=== PATIENT | female | born 1955 | race Caucasian/White ===

== ENCOUNTER → 2018-01-24 | Outpatient (CLI) | payer OTHER ==
[~2018-01-24] MED LIST: GADOBUTROL 7.5 MMOL/7.5 ML (GADAVIST) VIAL IV ONE
[2018-01-24 09:19] LABS: BUN/CREATININE RATIO 32; CREATININE SERUM 0.88 MG/DL (0.60-1.30); GFR ESTIMATED > 60
--- NOTE | 2018-01-24 10:39 | Diagnostic Imaging Report ---
PROCEDURE: MRI lumbar spine with and without contrast. TECHNIQUE: Multiplanar, multisequence MRI of the lumbar spine was performed with and without contrast. INDICATION: Fall in October 2017, complaining of low back pain radiating to the left groin. COMPARISON: No prior MRI studies are available for comparison. FINDINGS: Curvature and alignment of the lumbar spine is normal. The vertebral body heights are maintained. The marrow signal intensity is unremarkable. No geographic marrow lesion or evidence of compression fracture is identified. Disc heights are maintained. There is some generalized desiccation present. The conus is unremarkable at the L1 level. T12-L1: No central canal or neuroforaminal stenosis is identified. L1-L2: No central canal or neuroforaminal stenosis is identified. L2-L3: Unremarkable. L3-L4: There are hypertrophic facet changes and mild ligamentous thickening but no central canal or neuroforaminal stenosis is identified. L4-L5: Hypertrophic facet changes are seen. There is ligamentous thickening. This does create some trefoil configuration to this thecal sac. No neuroforaminal stenosis is seen. AP dimensions of the canal are within normal limits. L5-S1: Left posterolateral broad-based disc bulging is noted which does produce [id number] narrowing of left lateral recess. Neural foramina are patent. No abnormal enhancement following contrast administration is identified. Paraspinous tissues are unremarkable. IMPRESSION: Lower lumbar spondylosis and facet arthropathy. There is L5-S1 left lateral recess narrowing due to broad-based disc bulging. There is mild trefoil configuration of the thecal sac at the L3-L4 and L4-L5 levels but no significant central canal stenosis is seen. No enhancing lesion or acute compression fractures identified. Dictated by: Dictated on workstation # [id number]
== END ==
LOC: RAD 08:36
PROVIDERS: ATTEND Nurse Practitioner Family
DX: M47.816 Spondylosis without myelopathy or radiculopathy, lumbar region (principal); M46.86 Other specified inflammatory spondylopathies, lumbar region; M51.27 Other intervertebral disc displacement, lumbosacral region; G62.9 Polyneuropathy, unspecified; W19.XXXA Unspecified fall, initial encounter
CPT/HCPCS: 36415; 72158; 82565; 84520

== ENCOUNTER 2019-06-15 08:39 | Observation (INO) | payer BC ==
[~2019-06-15] VITALS: Ht 154.9 cm; Wt 70.8 kg
--- NOTE | 2019-06-15 08:54 | ED Chest Pain ---
General Chief Complaint: Chest Pain Stated Complaint: CHEST PAIN Source: patient Exam Limitations: no limitations History of Present Illness Date Seen by Provider: Jun 15, 2019 Time Seen by Provider: 08:36 Initial Comments The patient presents to the ER by private conveyance with chief complaint about 1:00 the morning she was woken with some chest pain in her left chest that progressively got worse up to about 8 out of 10 at its peak. She took 400 mg of ibuprofen which helped with the pain was radiating to her bilateral shoulders. She says the pain was worse in her left and right. She says at this point the pain in her shoulders much better almost gone and her pain in her left chest is only a 5 out of 10. She is also having some pain up into her left jaw. Pain is reproducible to direct palpation as well as sometimes deep inspiration. She quit smoking 6 years ago when she was diagnosed with breast cancer and had her left breast removed. She had radiation and chemotherapy. She is considered in remission and does not remember who her oncologist was because it was in [place], [place]. She does not have diabetes but she has high blood pressure and hyperlipidemia. No previous history of coronary disease. No significant familial history. No recent periods of immobilization, shortness of breath cough, fever, chills, swelling in hands or feet. She was told she has COPD but she's not having any wheezing and never uses breathing treatments. She only has occasional acid reflux for which she uses antacids as needed. She is having nausea but no vomiting. She did have some sweats with the pain. Allergies and Home Medications Allergies Coded Allergies: No Known Drug Allergies (Unverified , 01/24/18) Patient Home Medication List Home Medication List Reviewed: Yes Review of Systems Review of Systems Constitutional: No chills; diaphoresis; No fever, No malaise EENTM: No Blurred Vision, No Double Vision Respiratory: Denies Cough, Denies Shortness of Air Cardiovascular: See HPI, Chest Pain; Denies Edema, Denies Irregular Heart Rate, Denies Lightheadedness, Denies Palpitations, Denies Syncope Gastrointestinal: Denies Abdominal Pain, Denies Constipated, Denies Diarrhea; Nausea; Denies Vomiting Genitourinary: Denies Burning, Denies Discharge Musculoskeletal: No back pain, No joint pain Skin: No pruritus, No rash Past Hueoelo-Khbbes-Dtnxoj Hx Patient Social History Alcohol Use: Denies Use Recreational Drug Use: No Smoking Status: Former Smoker Type Used: Cigarettes Former Smoker, Quit: Jun 28, 2013 Physical Exam Vital Signs Vital Signs - First Documented 06/15/19 08:41 Temp 97.7 Pulse 75 Resp 19 B/P (MAP) 179/111 (133) Pulse Ox 96 Capillary Refill : Height, Weight, BMI Height: '" Weight: lbs. oz. kg; BMI Method: General Appearance: WD/WN, Anxious HEENT: PERRL/EOMI, Pharynx Normal, Moist Mucous Membranes Neck: Full Range of Motion, Normal Inspection Respiratory: No Chest Non Tender; Lungs Clear, Normal Breath Sounds, No Accessory Muscle Use, No Respiratory Distress, Other (tenderness to direct palpation of the left chest wall) Cardiovascular: Regular Rate, Rhythm, No Edema, No Murmur, Normal Peripheral Pulses Gastrointestinal: Normal Bowel Sounds, No Organomegaly, Non Tender, Soft Extremity: Normal Capillary Refill, Normal Inspection Neurologic/Psychiatric: Alert, Oriented x3 Skin: Normal Color, Warm/Dry Progress/Results/Core Measures Results/Orders Lab Results Laboratory Tests Test 06/15/19 08:50 Range/Units White Blood Count 7.5 4.3-11.0 10^3/uL Red Blood Count 4.00 L 4.35-5.85 10^6/uL Hemoglobin 11.5 11.5-16.0 G/DL Hematocrit 35 35-52 % Mean Corpuscular Volume 88 80-99 FL Mean Corpuscular Hemoglobin 29 25-34 PG Mean Corpuscular Hemoglobin Concent 33 32-36 G/DL Red Cell Distribution Width 13.3 10.0-14.5 % Platelet Count 286 130-400 10^3/uL Mean Platelet Volume 9.0 7.4-10.4 FL Neutrophils (%) (Auto) 66 42-75 % Lymphocytes (%) (Auto) 24 12-44 % Monocytes (%) (Auto) 7 0-12 % Eosinophils (%) (Auto) 3 0-10 % Basophils (%) (Auto) 0 0-10 % Neutrophils # (Auto) 4.9 1.8-7.8 X 10^3 Lymphocytes # (Auto) 1.8 1.0-4.0 X 10^3 Monocytes # (Auto) 0.5 0.0-1.0 X 10^3 Eosinophils # (Auto) 0.2 0.0-0.3 10^3/uL Basophils # (Auto) 0.0 0.0-0.1 10^3/uL Prothrombin Time 13.1 12.2-14.7 SEC INR Comment 1.0 0.8-1.4 Activated Partial Thromboplast Time 27 24-35 SEC Sodium Level 142 135-145 MMOL/L Potassium Level 3.6 3.6-5.0 MMOL/L Chloride Level 99 98-107 MMOL/L Carbon Dioxide Level 25 21-32 MMOL/L Anion Gap 18 H 5-14 MMOL/L Blood Urea Nitrogen 29 H 7-18 MG/DL Creatinine 1.28 0.60-1.30 MG/DL Estimat Glomerular Filtration Rate 42 BUN/Creatinine Ratio 23 Glucose Level 120 H 70-105 MG/DL Calcium Level 10.0 8.5-10.1 MG/DL Corrected Calcium 8.5-10.1 MG/DL Magnesium Level 1.3 L 1.6-2.4 MG/DL Total Bilirubin 0.4 0.1-1.0 MG/DL Aspartate Amino Transf (AST/SGOT) 19 5-34 U/L Alanine Aminotransferase (ALT/SGPT) 12 0-55 U/L Alkaline Phosphatase 66 40-136 U/L Myoglobin 109.5 H 10.0-92.0 NG/ML Troponin I < 0.30 <0.30 NG/ML Total Protein 7.9 6.4-8.2 GM/DL Albumin 4.8 H 3.2-4.5 GM/DL My Orders Orders - EMMANUELLE ALICEA Cbc With Automated Diff (06/15/19 08:48) Magnesium (06/15/19 08:48) Chest 1 View Ap/Pa Only (06/15/19 08:48) Ekg Tracing (06/15/19 08:48) Comprehensive Metabolic Panel (06/15/19 08:48) Myoglobin Serum (06/15/19 08:48) Protime With Inr (06/15/19 08:48) Partial Thromboplastin Time (06/15/19 08:48) O2 (06/15/19 08:48) Monitor-Rhythm Ecg Trace Only (06/15/19 08:48) Lipid Panel (06/16/19 06:00) Aspirin Chewable Tablet (Baby Aspirin Ch (06/15/19 09:00) Nitroglycerin 0.4 Mg Btl 25's (Nitrostat (06/15/19 09:00) Ed Iv/Invasive Line Start (06/15/19 08:48) Troponin I (06/15/19 08:48) Ondansetron Injection (Zofran Injectio (06/15/19 09:00) Ed Iv/Invasive Line Start (06/15/19 09:35) Ns Iv 500 Ml (Sodium Chloride 0.9%) (06/15/19 09:35) Lidocaine 2% Viscous 15 Ml (Xylocaine Vi (06/15/19 09:45) Antacid Suspension (Mylanta Suspension (06/15/19 09:45) Famotidine Injection (Pepcid Injection) (06/15/19 09:35) Ct Angio Chest W (06/15/19 09:54) Heparin Acs Bolus 60 Units/Kg (06/15/19 09:54) Medications Given in ED Current Medications Medications Dose Ordered Sig/Cleo Route Start Time Stop Time Status Last Admin Dose Admin Al Hydrox/Mg Hydrox/Simethicone 30 ml ONCE ONCE PO 06/15/19 09:45 06/15/19 09:46 DC 06/15/19 09:45 30 ML Aspirin 324 mg ONCE ONCE PO 06/15/19 09:00 06/15/19 09:01 DC 06/15/19 08:57 324 MG Lidocaine HCl 15 ml ONCE ONCE PO 06/15/19 09:45 06/15/19 09:46 DC 06/15/19 09:45 15 ML Nitroglycerin 0.4 mg UD PRN SL 06/15/19 09:00 06/15/19 08:57 0.4 MG Ondansetron HCl 4 mg ONCE ONCE IVP 06/15/19 09:00 06/15/19 09:01 DC 06/15/19 09:00 4 MG Sodium Chloride 500 ml @ 0 mls/hr Q0M ONCE IV 06/15/19 09:35 06/15/19 09:36 DC 06/15/19 09:45 999 MLS/HR Vital Signs/I&O 06/15/19 08:41 Temp 97.7 Pulse 75 Resp 19 B/P (MAP) 179/111 (133) Pulse Ox 96 Progress Progress Note : Time: 09:31 Progress Note Gave her aspirin and nitroglycerin. Nitroglycerin did not seem to improve her chest pain and she says she still feels that since pressing down on her chest 4 out of 10. We'll trial a GI cocktail just to rule out gastric source. Moderate suspicion for her story but the reproducibility by direct palpation could either be costochondritis or related to her previous radiation therapy in the area of her pain. Heart score 3 points. Low risk. 0.91.7% 30-day MACE. Repeat troponin at 3 hours and if negative, discharge home with outpatient follow-up. Initial ECG Impression Date: Jun 15, 2019 Initial ECG Impression Time: 08:41 Initial ECG Rate: 69 Initial ECG Rhythm: Normal Sinus Initial ECG Intervals: Normal Initial ECG Impression: Normal Initial ECG Comparisson: No Previous ECG Available Comment Normal sinus rhythm without ST elevation or depression. Diagnostic Imaging Diagonstic Imaging: Xray Plain Films/CT/US/NM/MRI: chest (1v) Comments NAME: MARY [facility] REC#: [id number] PT STATUS: REG ER : 1955 PHYSICIAN: EMMANUELLE ALICEA MD ADMIT DATE: 06/15/19/ER FS Draft Date of Exam:06/15/19 CHEST 1 VIEW AP/PA ONLY INDICATION: Chest pain. COMPARISON: None available. TECHNIQUE: Single radiograph of the chest dated 06/15/2019. FINDINGS: The cardiac silhouette is within normal limits in size. No significant pulmonary vascular congestion. The lungs are clear. No pleural effusion. No pneumothorax. No acute osseous abnormality. IMPRESSION: No acute cardiopulmonary abnormality. Dictated on workstation # [id number] Dict: 06/15/19 0908 Trans: 06/15/19 0910 KB [id number] Interpreted by: MILAGRO HERNANDEZ MD Electronically signed by: Reviewed: Reviewed by Me Departure Communication (Admissions) Time/Spoke to Admitting Phy: 09:50 Dr. Stewart agrees to accept the patient for workup of chest pain. Time/Spoke to Consulting Phy: 09:50 Dr. Blanca agrees to consult on the patient and would like us to get a CT angiogram give her 5000 units of heparin and then send her. Impression Primary Impression: Chest pain Disposition: ADMITTED INPATIENT Condition: Stable Admissions Decision to Admit Reason: Admit from ER (General) Decision to Admit/Date: Jun 15, 2019 Time/Decision to Admit Time: 09:45 Departure-Patient Inst. Referrals: NO,LOCAL PHYSICIAN (PCP) Primary Care Physician MICHELLE PICKETT APRN (Family) Primary Care Physician EMMANUELLE ALICEA Jun 15, 2019 08:54
[2019-06-15] MEDS ORDERED: ONDANSETRON 4 MG/2 ML (SDV) Z0FRAN IVP ONE ×2 (09:00→10:00)
[2019-06-15] MEDS ORDERED: NITROGLYCERIN 0.4 MG SL TABS BTL 25'S SL PRN ×2 (09:00→12:30)
[2019-06-15] MEDS ORDERED: ASPIRIN 81 MG CHEW (CHILDREN'S ASA) PO ONE (09:00)
[2019-06-15 09:01] LABS: HEMATOCRIT 35 % (35-52); HEMOGLOBIN 11.5 G/DL (11.5-16.0); MEAN CORPUSCULAR HEMOGLOBIN 29 PG (25-34); MEAN CORPUSCULAR VOLUME 88 FL (80-99); WHITE BLOOD COUNT 7.5 10^3/uL (4.3-11.0)
[2019-06-15 09:02] LABS: BASOPHILS % (AUTO) 0 % (0-10); EOSINOPHILS # (AUTO) 0.2 10^3/uL (0.0-0.3); EOSINOPHILS % (AUTO) 3 % (0-10); LYMPHOCYTES # (AUTO) 1.8 X 10^3 (1.0-4.0); LYMPHOCYTES % (AUTO) 24 % (12-44); MEAN CORPUSCULAR HGB CONC 33 G/DL (32-36); MONOCYTES # (AUTO) 0.5 X 10^3 (0.0-1.0); MONOCYTES % (AUTO) 7 % (0-12); NEUTROPHILS # (AUTO) 4.9 X 10^3 (1.8-7.8); NEUTROPHILS % (AUTO) 66 % (42-75); PLATELET COUNT 286 10^3/uL (130-400); RED CELL DISTRIBUTION WIDTH 13.3 % (10.0-14.5)
--- NOTE | 2019-06-15 09:11 | Diagnostic Imaging Report ---
INDICATION: Chest pain. COMPARISON: None available. TECHNIQUE: Single radiograph of the chest dated 06/15/2019. FINDINGS: The cardiac silhouette is within normal limits in size. No significant pulmonary vascular congestion. The lungs are clear. No pleural effusion. No pneumothorax. No acute osseous abnormality. IMPRESSION: No acute cardiopulmonary abnormality. Dictated by: Dictated on workstation # [id number]
[2019-06-15 09:30] LABS: ALANINE AMINOTRANSFERASE 12 U/L (0-55); ALKALINE PHOSPHATASE 66 U/L (40-136); BILIRUBIN,TOTAL 0.4 MG/DL (0.1-1.0); BUN/CREATININE RATIO 23; CARBON DIOXIDE 25 MMOL/L (21-32); CHLORIDE 99 MMOL/L (98-107); CREATININE SERUM 1.28 MG/DL (0.60-1.30); GFR ESTIMATED 42; GLUCOSE 120 MG/DL (70-105); MAGNESIUM 1.3 MG/DL (1.6-2.4); POTASSIUM 3.6 MMOL/L (3.6-5.0); SODIUM 142 MMOL/L (135-145)
[2019-06-15 09:31] LABS: ALBUMIN 4.8 GM/DL (3.2-4.5); TOTAL PROTEIN 7.9 GM/DL (6.4-8.2)
[2019-06-15 09:33] LABS: PROTHROMBIN TIME PATIENT 13.1 SEC (12.2-14.7)
[2019-06-15] MEDS ORDERED: NS IV 500 ML 500 ML IV ONE (09:35)
[2019-06-15] MEDS ORDERED: FAMOTIDINE 20MG/2ML IV (PEPCID) IV STA (09:35)
[2019-06-15] MEDS ORDERED: LIDOCAINE 2% VISCOUS 15 ML UDC PO ONE (09:45)
[2019-06-15] MEDS ORDERED: ANTACID SUSP 30 ML UDC (MYLANTA) PO ONE (09:45)
[2019-06-15] MEDS ORDERED: HEParin 1000 UNIT/ML (10ML VIAL) FOR BOLUS IV ONE (09:54)
[2019-06-15] MEDS ORDERED: morphine INJ 10 MG/ML 1ML (SYR OR VIAL) IVP STA (09:58)
[2019-06-15] MEDS ORDERED: HOLD METFORMIN - RECEIVED CONTRAST 20 ML VIAL IV SCH (10:30)
[2019-06-15] MEDS ORDERED: IOHEXOL 350 MG/ML 100 ML (OMNIPAQUE 350) VIAL IV ONE (10:30)
[2019-06-15] MEDS ORDERED: NS 100 ML (IVPB) BAG IV ONE (10:30)
[2019-06-15] MEDS: CATHETER FLUSH 10 ML SYR IV PRN (10:35)
--- NOTE | 2019-06-15 10:51 | NUR ---
Called dispatch to page out transfer for via cliff nguyen, room cu3
--- NOTE | 2019-06-15 11:05 | Diagnostic Imaging Report ---
PROCEDURE: CT angiography of the chest with contrast. TECHNIQUE: Multiple contiguous axial images were obtained through the chest after uneventful bolus administration of intravenous contrast. 3D reconstructed CTA MIP acquisitions were also performed. Auto Exposure Controls were utilized during the CT exam to meet ALARA standards for radiation dose reduction. INDICATION: Chest pain. FINDINGS: Good opacification of the aorta and pulmonary arteries. There are no filling defects to indicate pulmonary emboli. No evidence of aortic aneurysm or dissection. The aortic root measures 3.1 cm. There is a soft tissue nodule which is not calcified in the left lung base measuring 7 mm. No mediastinal or hilar adenopathy of pathologic size. No bony lesion. IMPRESSION: 1. No evidence of pulmonary embolus or aortic dissection. 2. There is a soft tissue nodule measuring 7 mm laterally in the left lower lung abutting the pleura. Clinical followup recommended per Fleischner recommendations depending on patient's clinical history. Dictated by: Dictated on workstation # [id number]
[2019-06-15 12:05] VITALS: BP 185/115
[2019-06-15 12:30] VITALS: BP 177/100
[2019-06-15] MEDS ORDERED: ONDANSETRON 4 MG/2 ML (SDV) Z0FRAN IV PRN (12:30)
[2019-06-15] MEDS ORDERED: morphine INJ 4 MG/ML 1 ML (VIAL/SYRINGE) IV PRN (12:30)
[2019-06-15] MEDS ORDERED: NS W/KCL 20 MEQ/L 1,000 ML IV SCH (12:30)
[2019-06-15] MEDS ORDERED: REGADENOSON 0.4 MG/5 ML SYR (LEXISCAN) IV ONE (12:45)
--- NOTE | 2019-06-15 12:46 | Consultation-Cardiology ---
HPI-Cardiology Cardiology Consultation Date of Consultation 06/15/19 Date of Admission Time Seen by Provider: 12:40 Indication: chest pain HPI 63 years old lady with history of breast cancer, mastectomy, diabetes mellitus, hypertension hyperlipidemia. Start to have chest pain yesterday described it as dull in nature on the left side of her chest radiating to left shoulder and left arm persisted overnight, came into the emergency room reported some improvement today, laying down in bed comfortably, no shortness of breath. No syncope or near syncopal episodes. No claudications. Home Medications & Allergies Allergies: Coded Allergies: No Known Drug Allergies (Unverified , 01/24/18) Home Medication List Reviewed: Yes SAK-Ybplja-Fdrzfc Hx Patient Social History Marital Status: Employed/Student: employed Alcohol Use: Denies Use Recreational Drug Use: No Smoking Status: Former Smoker Type Used: Cigarettes 2nd Hand Smoke Exposure: No Recent Foreign Travel: No Recent Infectious Disease Expo: No Recent Hopitalizations: No Past Medical History discussed below Family Medical History Family Medical Hx noncontributory Review of Systems-General Review of Systems Constitutional: No chills; diaphoresis; No fever, No malaise EENTM: see HPI Respiratory: see HPI; No cough; dyspnea on exertion; No hemoptysis, No orthopnea, No phlegm, No short of breath, No stridor, No wheezing, No other Cardiovascular: see HPI, chest pain; No edema, No Hx of Intervention, No palpitations, No syncope, No vascular heart diseas, No other Gastrointestinal: no symptoms reported, see HPI Genitourinary: see HPI Musculoskeletal: see HPI; No back pain, No joint pain Skin: see HPI; No pruritus, No rash Psychiatric/Neurological: See HPI Reviewed Test Results Reviewed Test Results Lab Laboratory Tests Test 06/15/19 08:50 Range/Units White Blood Count 7.5 4.3-11.0 10^3/uL Red Blood Count 4.00 L 4.35-5.85 10^6/uL Hemoglobin 11.5 11.5-16.0 G/DL Hematocrit 35 35-52 % Mean Corpuscular Volume 88 80-99 FL Mean Corpuscular Hemoglobin 29 25-34 PG Mean Corpuscular Hemoglobin Concent 33 32-36 G/DL Red Cell Distribution Width 13.3 10.0-14.5 % Platelet Count 286 130-400 10^3/uL Mean Platelet Volume 9.0 7.4-10.4 FL Neutrophils (%) (Auto) 66 42-75 % Lymphocytes (%) (Auto) 24 12-44 % Monocytes (%) (Auto) 7 0-12 % Eosinophils (%) (Auto) 3 0-10 % Basophils (%) (Auto) 0 0-10 % Neutrophils # (Auto) 4.9 1.8-7.8 X 10^3 Lymphocytes # (Auto) 1.8 1.0-4.0 X 10^3 Monocytes # (Auto) 0.5 0.0-1.0 X 10^3 Eosinophils # (Auto) 0.2 0.0-0.3 10^3/uL Basophils # (Auto) 0.0 0.0-0.1 10^3/uL Prothrombin Time 13.1 12.2-14.7 SEC INR Comment 1.0 0.8-1.4 Activated Partial Thromboplast Time 27 24-35 SEC Sodium Level 142 135-145 MMOL/L Potassium Level 3.6 3.6-5.0 MMOL/L Chloride Level 99 98-107 MMOL/L Carbon Dioxide Level 25 21-32 MMOL/L Anion Gap 18 H 5-14 MMOL/L Blood Urea Nitrogen 29 H 7-18 MG/DL Creatinine 1.28 0.60-1.30 MG/DL Estimat Glomerular Filtration Rate 42 BUN/Creatinine Ratio 23 Glucose Level 120 H 70-105 MG/DL Calcium Level 10.0 8.5-10.1 MG/DL Corrected Calcium 8.5-10.1 MG/DL Magnesium Level 1.3 L 1.6-2.4 MG/DL Total Bilirubin 0.4 0.1-1.0 MG/DL Aspartate Amino Transf (AST/SGOT) 19 5-34 U/L Alanine Aminotransferase (ALT/SGPT) 12 0-55 U/L Alkaline Phosphatase 66 40-136 U/L Myoglobin 109.5 H 10.0-92.0 NG/ML Troponin I < 0.30 <0.30 NG/ML Total Protein 7.9 6.4-8.2 GM/DL Albumin 4.8 H 3.2-4.5 GM/DL Physical Exam Physical Exam Vital Signs Vital Signs - First Documented 06/15/19 06/15/19 08:41 12:05 Temp 97.7 Pulse 75 Resp 19 B/P (MAP) 179/111 (133) Pulse Ox 96 O2 Delivery Room Air Capillary Refill : Less Than 3 Seconds Height, Weight, BMI Height: 5'1.00" Weight: 153lbs. 6.0oz. [id number]; 29.0 BMI Method:Stated General Appearance: WD/WN, Anxious HEENT: PERRL/EOMI, Pharynx Normal, Moist Mucous Membranes Neck: Full Range of Motion, Normal Inspection Respiratory: No Chest Non Tender; Lungs Clear, Normal Breath Sounds, No Accessory Muscle Use, No Respiratory Distress, Other (tenderness to direct palpation of the left chest wall) Cardiovascular: Regular Rate, Rhythm, No Edema, No Murmur, Normal Peripheral Pulses Gastrointestinal: Normal Bowel Sounds, No Organomegaly, Non Tender, Soft Extremity: Normal Capillary Refill, Normal Inspection Neurologic/Psychiatric: Alert, Oriented x3 Skin: Normal Color, Warm/Dry A/P-Cardiology Admission Diagnosis Chest pain Hypertension Hyperlipidemia Diabetes mellitus Assessment/Plan Chest pain nonspecific etiology, resembling angina. cardiac enzymes negative. I will proceed with Lexiscan stress test in the morning, continue to monitor, started on aspirin Hypertension, monitor blood pressure Hyperlipidemia, restart medication monitor lipids Diabetes mellitus, has been on metformin, hold metformin for now and use IV fluid and monitor closely. History of breast cancer, history of left mastectomy, radiation to the chest. Obesity, BMI 29. Clinical Quality Measures DVT/VTE Risk/Contraindication: Risk Factor Score Per Nursin RFS Level Per Nursing on Admit: 3=High TYLER FLORIAN MD Jun 15, 2019 12:46
--- NOTE | 2019-06-15 14:07 | History & Physical-Hospitalist ---
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 She had never had anything of this sort before. She does take blood pressure medicine and a cholesterol medicine. The pain also radiated to down her left arm and was quite intense and then also radiated to her jaw and across the back of the neck and down the right arm. Initial workup there did not confirm an acute myocardial infarction however the intensity and duration of her pain necessitated the transfer here for cardiology services. Date Seen 06/15/19 Time Seen by a Provider: 14:01 Attending Physician Gill Stewart DO PCP No,Local Physician Referring Physician Date of Admission Jun 15, 2019 at 10:12 Home Medications & Allergies Home Medications Reviewed patient Home Medication Reconciliation performed by pharmacy medication reconciliations tissue technician and/or nursing. Patients Allergies have been reviewed. Allergies Allergies Coded Allergies No Known Drug Allergies (Unverified01/24/18) Past Qdczjmn-Xqjgvs-Hmcmqs Hx Past Med/Social Hx: Reviewed Nursing Past Med/Soc Hx Patient Social History Marrital Status: Employed/Student: employed Alcohol Use: Denies Use Recreational Drug Use: No Smoking Status: Former Smoker Former Smoker, Quit: Jun 28, 2013 Type Used: Cigarettes 2nd Hand Smoke Exposure: No Recent Foreign Travel: No Contact w/other who traveled: No Recent Hopitalizations: No Recent Infectious Disease Expo: No Seasonal Allergies Seasonal Allergies: No Past Medical History Surgeries: Hysterectomy Cardiac: High Cholesterol, Hypertension Endocrine: Hypothyroidsim, Diabetes, Non-Insulin dep Cancer: Breast What Type of Treatment Did You: Chemotherapy, Radiation, Surgical Intervention Review of Systems Constitutional: see HPI EENTM: no symptoms reported Respiratory: no symptoms reported Cardiovascular: see HPI Gastrointestinal: no symptoms reported Genitourinary: no symptoms reported Musculoskeletal: no symptoms reported Skin: no symptoms reported Psychiatric/Neurological: No Symptoms Reported Physical Exam Physical Exam Vital Signs Vital Signs - First Documented 06/15/19 06/15/19 08:41 12:05 Temp 97.7 Pulse 75 Resp 19 B/P (MAP) 179/111 (133) Pulse Ox 96 O2 Delivery Room Air Capillary Refill : Less Than 3 Seconds Height, Weight, BMI Height: 5'1.00" Weight: 153lbs. 6.0oz. 69.778654cm; 29.0 BMI Method:Stated General Appearance: No Apparent Distress, WD/WN Eyes: Bilateral Eye Normal Inspection HEENT: Normal ENT Inspection Neck: Full Range of Motion Respiratory: Chest Non Tender, Lungs Clear, Normal Breath Sounds, No Accessory Muscle Use, No Respiratory Distress, Other Cardiovascular: Regular Rate, Rhythm, No Edema, No Gallop, No JVD, No Murmur, Normal Peripheral Pulses Gastrointestinal: Normal Bowel Sounds, No Organomegaly, No Pulsatile Mass, Non Tender Back: Normal Inspection, No CVA Tenderness Extremity: Normal Capillary Refill, Normal Inspection, Normal Range of Motion, Non Tender, No Calf Tenderness, No Pedal Edema Neurologic/Psychiatric: Alert, Oriented x3, No Motor/Sensory Deficits, Normal Mood/Affect Skin: Normal Color, Warm/Dry Lymphatic: No Adenopathy Results Results/Procedures Labs Laboratory Tests 06/15/19 08:50 Patient resulted labs reviewed. Assessment/Plan Admission Diagnosis 1.chest pain suggestive of angina pectoris. 2.history of hypertension. 3.history of breast cancer with left mastectomy 6 years ago. 4.hypercholesterolemia. 5.history of tobaccoism. Stopped smoking 6 years. 6.history of diabetes with use of metformin. Admission Status: Inpatient Order (span 2 midnights) Reason for Inpatient Admission: Greater than 2 midnights required to complete workup/treatment Clinical Quality Measures DVT/VTE Risk/Contraindication: Risk Factor Score Per Nursin RFS Level Per Nursing on Admit: 3=High HUY TURNER MD Jun 15, 2019 14:07
[2019-06-15] MEDS: NS IV 1000 ML 1,000 ML IV SCH (14:15)
[2019-06-15 15:45] VITALS: BP 181/111
[2019-06-15] MEDS ORDERED: ENOXAPARIN 80 MG/0.8 ML (LOVENOX) SYR SC SCH (16:00)
[2019-06-15 19:45] VITALS: BP 144/91
[2019-06-15] MEDS: ENOXAPARIN 80 MG/0.8 ML (LOVENOX) SYR SC SCH (20:51)
[2019-06-15 23:59] VITALS: BP 155/89
[2019-06-16] MEDS: NS IV 1000 ML 1,000 ML IV SCH ×2 (00:55→10:43)
[2019-06-16 03:29] LABS: BASOPHILS % (AUTO) 0 % (0-10); EOSINOPHILS # (AUTO) 0.2 10^3/uL (0.0-0.3); EOSINOPHILS % (AUTO) 4 % (0-10); HEMATOCRIT 34 % (35-52); LYMPHOCYTES # (AUTO) 2.3 X 10^3 (1.0-4.0); LYMPHOCYTES % (AUTO) 37 % (12-44); MEAN CORPUSCULAR HEMOGLOBIN 29 PG (25-34); MEAN CORPUSCULAR HGB CONC 32 G/DL (32-36); MEAN CORPUSCULAR VOLUME 89 FL (80-99); MEAN PLATELET VOLUME 9.6 FL (7.4-10.4); MONOCYTES # (AUTO) 0.4 X 10^3 (0.0-1.0); MONOCYTES % (AUTO) 7 % (0-12); NEUTROPHILS # (AUTO) 3.2 X 10^3 (1.8-7.8); NEUTROPHILS % (AUTO) 52 % (42-75); PLATELET COUNT 136 10^3/uL (130-400); RED CELL DISTRIBUTION WIDTH 13.7 % (10.0-14.5); WHITE BLOOD COUNT 6.2 10^3/uL (4.3-11.0)
[2019-06-16 03:48] LABS: ALANINE AMINOTRANSFERASE 11 U/L (0-55); ALKALINE PHOSPHATASE 53 U/L (40-136); BILIRUBIN,TOTAL 0.4 MG/DL (0.1-1.0); BUN/CREATININE RATIO 19; CALCIUM 8.7 MG/DL (8.5-10.1); CARBON DIOXIDE 20 MMOL/L (21-32); CHLORIDE 107 MMOL/L (98-107); CHOLESTEROL 120 MG/DL (< 200); CREATININE SERUM 1.14 MG/DL (0.60-1.30); GFR ESTIMATED 48; GLUCOSE 81 MG/DL (70-105); HDL CHOLESTEROL 53 MG/DL (40-60); MAGNESIUM 1.5 MG/DL (1.6-2.4); PHOSPHORUS 3.6 MG/DL (2.3-4.7); POTASSIUM 4.2 MMOL/L (3.6-5.0); SODIUM 141 MMOL/L (135-145); TOTAL PROTEIN 6.6 GM/DL (6.4-8.2); TRIGLYCERIDES 120 MG/DL (<150); VLDL CHOLESTEROL 24 MG/DL (5-40)
[2019-06-16 03:50] VITALS: BP 157/97
[2019-06-16] MEDS ORDERED: MAGNESIUM 1 GM/100 ML IVPB 200 ML IV ONE (04:15)
[2019-06-16] MEDS: MAGNESIUM 1 GM/100 ML IVPB 100 ML IV SCH ×2 (04:31→05:30)
--- NOTE | 2019-06-16 05:43 | Pulmonary Consultation ---
History of Present Illness History of Present Illness Date of Consultation 06/16/19 05:43 Time Seen by Provider: 06:45 Date of Admission Reason for Visit: chest pain History of Present Illness 63 yo with hx of COPD, breast cancer, mastectomy, DM, HTN, hyperlipidemia, hx of tobacco use presented to ED secondary to left sided sharp CP radiation to left shoulder and awakened her from sleep. No prior episodes. No known CAD. Nitro relieved CP. Pt also had associated diaphoresis, and nausea. No syncope, No F/NS/Chills. Allergies and Home Medications Allergies Coded Allergies: No Known Drug Allergies (Unverified , 01/24/18) Past Nfkkclb-Cutlfp-Afjmvy Hx Past Med/Social Hx: Reviewed Nursing Past Med/Soc Hx Patient Social History Alcohol Use: Denies Use Recreational Drug Use: No Smoking Status: Former Smoker Type Used: Cigarettes Former Smoker, Quit: Jun 28, 2013 2nd Hand Smoke Exposure: No Recent Foreign Travel: No Contact w/Someone Who Travel: No Recent Infectious Disease Expo: No Recent Hopitalizations: No Physical Abuse: No Sexual Abuse: No Mistreated: No Fear: No Seasonal Allergies Seasonal Allergies: No Past Medical History Surgeries: Yes (left mastectomy) Hysterectomy Respiratory: No Cardiac: Yes High Cholesterol, Hypertension Neurological: No Genitourinary: No Gastrointestinal: No Musculoskeletal: No Endocrine: Yes Hypothyroidsim, Diabetes, Non-Insulin dep HEENT: No Cancer: Yes Breast What Type of Treatment Did You: Chemotherapy, Radiation, Surgical Intervention Psychosocial: No Integumentary: No Review of Systems Time Seen by Provider: 06:53 Constitutional: Sweats, Malaise; No: Fever, Chills, Weakness, Other Eyes: No: Pain, Vision change, Conjunctivae inflammation, Eyelid inflammation, Other, Redness ENT: No: Ear pain, Ear discharge, Nose pain, Nose discharge, Nose congestion, Mouth pain, Mouth swelling, Throat pain, Throat swelling, Other Respiratory: No: Cough, Dry, Shortness of breath, SOB with excertion, Wheezing, Hemoptysis, Pleuritic Pain, Sputum, Wheezing, Other Cardiovascular: Chest Pain, Palpitations, Paroxysmal Noc. Dyspnea Sepsis Event Evaluation Height, Weight, BMI Height: 5'1.00" Weight: 153lbs. 6.0oz. [id number]; 29.0 BMI Method:Stated Exam Exam Vital Signs Date Time Temp Pulse Resp B/P (MAP) Pulse Ox O2 Delivery O2 Flow Rate FiO2 06/16/19 03:50 97.0 58 12 157/97 (117) 99 Room Air 06/16/19 01:00 59 06/15/19 23:59 97.0 74 12 155/89 (111) 98 Room Air 06/15/19 21:00 98 Room Air 06/15/19 19:45 98.7 95 14 144/91 (108) 90 Room Air 06/15/19 19:00 76 06/15/19 15:45 98.0 77 16 181/111 (134) 98 Room Air 06/15/19 12:30 64 23 177/100 (125) 97 Room Air 06/15/19 12:23 99 Room Air 06/15/19 12:05 97.7 59 10 185/115 (138) 99 Room Air 06/15/19 10:57 97.2 75 18 178/94 (122) 97 06/15/19 08:41 97.7 75 19 179/111 (133) 96 I & O 06/16/19 07:00 Intake Total 3000 ml Balance 3000 ml Height & Weight Height: 5'1.00" Weight: 153lbs. 6.0oz. 69.991985vr; 29.0 BMI Method:Stated General Appearance: No Apparent Distress, WD/WN HEENT: Normal ENT Inspection Neck: Full Range of Motion Respiratory: Chest Non Tender, Lungs Clear, Normal Breath Sounds, No Accessory Muscle Use, No Respiratory Distress, Other Cardiovascular: Regular Rate, Rhythm, No Edema, No Gallop, No JVD, No Murmur, Normal Peripheral Pulses Capillary Refill: Less Than 3 Seconds Extremity: Normal Capillary Refill, Normal Inspection, Normal Range of Motion, Non Tender, No Calf Tenderness, No Pedal Edema Neurologic/Psychiatric: Alert, Oriented x3, No Motor/Sensory Deficits, Normal Mood/Affect Skin: Normal Color, Warm/Dry Lymphatic: No Adenopathy Results Lab Laboratory Tests 06/15/19 08:50 06/16/19 03:15 Assessment/Plan Assessment/Plan CP r/o USA -Probable stress test today -Cardiology following Possible PEYMAN - CP started while sleeping -Out pt testing Hx of COPD -Currently stable HTN -Monitor DM Hyperlipidemia Hx of tobacco use GLENDY GENTILE DO Jun 16, 2019 05:43
[2019-06-16] MEDS ORDERED: KCL 20 MEQ TAB (K-DUR) PO SCH (06:00)
[2019-06-16] MEDS ORDERED: MAGNESIUM 1 GM/100 ML IVPB 100 ML IV SCH (06:00)
[2019-06-16] MEDS ORDERED: POTASSIUM CL 10MEQ/50ML IVPB 50 ML IV SCH (06:00)
--- NOTE | 2019-06-16 07:47 | Cardiology Progress Note ---
Subjective Date Seen by Provider: Jun 16, 2019 Time Seen by Provider: 07:46 Subjective/Events-last exam Patient is laying down in bed. Denied any chest pain. No palpitation Review of Systems General: No Chills, No Night Sweats, No Fatigue, No Malaise, No Appetite, No Other HEENT: No Head Aches, No Visual Changes, No Eye Pain, No Ear Pain, No Dysphasia, No Sinus Congestion, No Post Nasal Drip, No Sore Throat, No Other Pulmonary: No Dyspnea, No Cough, No Pleuritic Chest Pain, No Other Cardiovascular: No: Chest Pain, Palpitations, Orthopnea, Paroxysmal Noc. Dyspnea, Edema, Lt Headedness, Other Focused Exam Lactate Level 06/16/19 07:05: Lactic Acid Level 0.69 Lactic Acid Level Laboratory Tests Test 06/16/19 07:05 Lactic Acid Level 0.69 MMOL/L (0.50-2.00) Objective-Cardiology Exam Last Set of Vital Signs Vital Signs 06/16/19 03:50 Temp 97.0 Pulse 58 Resp 12 B/P (MAP) 157/97 (117) Pulse Ox 99 O2 Delivery Room Air Capillary Refill : Less Than 3 Seconds I&O Intake and Output 06/16/19 00:00 Intake Total 1650 ml Balance 1650 ml Intake Oral 650 ml IV Total 500 ml Tube Feeding 500 ml # Voids 4 Daily Weight Change No General: Alert, Oriented X3, Cooperative HEENT: Atraumatic, PERRLA Neck: Supple, No JVD, No Thyromegaly Lungs: Clear to Auscultation, Normal Air Movement Heart: Regular Rate, Normal S1, Normal S2, No Murmurs Abdomen: Normal Bowel Sounds, Soft, No Tenderness, No Hepatosplenomegaly, No Masses Extremities: No Clubbing, No Cyanosis, No Edema, Normal Pulses, No Tenderness/Swelling Skin: No Rashes, No Breakdown, No Significant Lesion Neuro: Normal Gait, Normal Speech, Strength at 5/5 X4 Ext, Normal Tone, Sensation Intact Psych/Mental Status: Mental Status NL, Mood NL Results Lab Laboratory Tests 06/15/19 08:50 06/16/19 03:15 A/P-Cardiology Admission Diagnosis Chest pain Hypertension Hyperlipidemia Diabetes mellitus Assessment/Plan Chest pain nonspecific etiology, resembling angina. cardiac enzymes negative. I will proceed with Lexiscan stress test today. Continue to monitor Hypertension, monitor blood pressure Hyperlipidemia, restart medication monitor lipids Diabetes mellitus, has been on metformin, hold metformin for now and use IV fluid and monitor closely. History of breast cancer, history of left mastectomy, radiation to the chest. Obesity, BMI 29. Clinical Quality Measures DVT/VTE Risk/Contraindication: Risk Factor Score Per Nursin RFS Level Per Nursing on Admit: 3=High TYLER FLORIAN MD Jun 16, 2019 07:46
[2019-06-16] MEDS ORDERED: REGADENOSON 0.4 MG/5 ML SYR (LEXISCAN) IV ONE ×2 (08:00→11:40)
[2019-06-16] MEDS ORDERED: ASPIRIN E.C. 81 MG (ECOTRIN) TAB PO SCH (09:00)
[2019-06-16] MEDS ORDERED: LISI1TAB8 PO (09:36)
[2019-06-16] MEDS ORDERED: CITA20TA9 PO (09:36)
[2019-06-16] MEDS ORDERED: LEVO50TA6 PO (09:36)
[2019-06-16] MEDS ORDERED: ROSU10TA28 PO (09:36)
[2019-06-16] MEDS ORDERED: METF500T8 PO (09:36)
[2019-06-16] MEDS ORDERED: LISI-552 PO (09:39)
[2019-06-16] MEDS ORDERED: IBUP-30 PO (09:40)
--- NOTE | 2019-06-16 09:41 | NUR ---
WENT OVER THE EXT MED HX WITH THE PATIENT AND SHE VERIFIED HOW SHE TAKES EVERYTHING. SHE STATES SHE TAKES BOTH THE LISINOPRIL AND LISINOPRIL HCTZ, ONE IN THE MORNING AND THE OTHER AT HS. SHE STATS SHE TAKES ADVIL OTC PRN
[2019-06-16] MEDS: CATHETER FLUSH 10 ML SYR IV PRN (10:43)
[2019-06-16] MEDS: ENOXAPARIN 80 MG/0.8 ML (LOVENOX) SYR SC SCH (10:43)
[2019-06-16 10:54] LABS: BILIRUBIN,URINE NEGATIVE (NEGATIVE); CLARITY,URINE CLEAR; COLOR,URINE YELLOW; GLUCOSE, URINE (UA) NEGATIVE (NEGATIVE); KETONES,URINE NEGATIVE (NEGATIVE); LEUKOCYTE ESTERASE ,URINE 3+ (NEGATIVE); NITRITE,URINE NEGATIVE (NEGATIVE); PH,URINE 5 (5-9); PROTEIN,URINE NEGATIVE (NEGATIVE); UROBILINOGEN,URINE NORMAL (NORMAL)
[2019-06-16] MEDS ORDERED: inSUlin ASPART (NovoLOG) 1 UNIT/0.01 ML (CHARGE PER UNIT) SC SCH (11:00)
[2019-06-16 11:13] LABS: RBC,URINE 0-2 /HPF
[2019-06-16 11:14] LABS: BACTERIA,URINE MODERATE /HPF; WBC,URINE 25-50 /HPF
[2019-06-16 11:52] VITALS: BP 123/83
[2019-06-16 11:54] VITALS: BP 127/80
--- NOTE | 2019-06-16 14:42 | Discharge Instructions ---
Discharge [facility] Discharge Medications New, Converted or Re-Newed RX: Other Continued Medications: Citalopram Hydrobromide (Citalopram HBr) 20 Mg Tablet 20 MG PO HS, TAB Ibuprofen (Advil) 200 Mg Tablet 400-800 MG PO TID PRN for PAIN-MILD, TAB TAKES 2-4 (200MG) TABLETS Levothyroxine Sodium (Levothyroxine Sodium) 50 Mcg Tablet 25 MCG PO DAILY, TAB TAKES 1/2 (50MCG) TABLET Lisinopril (Lisinopril) 20 Mg Tablet 20 MG PO HS, TAB Lisinopril/Hydrochlorothiazide (Lisinopril-Hctz 20-12.5 mg Tab) 1 Each Tablet 1 TAB PO DAILY, TAB Metformin HCl (Metformin HCl ER) 500 Mg Tab.er.24h 500 MG PO DAILY, TAB Rosuvastatin Calcium (Rosuvastatin Calcium) 10 Mg Tablet 10 MG PO HS, TAB Patient Instructions Goal/Follow Up Appt: Follow up with Dr. Blanca as directed. Follow up with Christiane Bowling at [facility] in [facility] on 06/19 at 1 pm. Patient Instructions: There was a 7 mm nodule in the left lower lung that Radiology recommended following up per Fleischner criteria (repeat CT scan in 6-12 months). Return to The [facility] For: Fever, shortness of breath, worsening chest pain Activity & Diet Discharge Diet: ADA Diet Activity as Tolerated: Yes Copy Copies To 1: BETTE Khan BETHANY N MD Jun 16, 2019 14:38
[2019-06-16 15:16] VITALS: BP 164/96
--- NOTE | 2019-06-17 19:43 | STRESS TEST ---
DATE OF SERVICE: 06/16/2019 LEXISCAN MYOVIEW STRESS TEST REPORT REFERRING PHYSICIAN: [facility]. Baseline heart rate is 58, baseline blood pressure 148/100. Baseline EKG is sinus rhythm with no ischemic changes. In summary, the patient was injected with 10.57 mCi of technetium-99 Myoview and the resting images were obtained. Then, the patient received 0.4 mg of Lexiscan followed by 29.4 mCi of technetium-99 Myoview. Throughout the test, there were no EKG changes. The resting and stress images were reviewed and compared in the short axis, horizontal long axis, and vertical long axis views. Review of the images showed no significant ischemia or infarction. SSS is 0. TID value 1.06. On the gated images, the left ventricle appeared to be normal size with normal contractility. Calculated ejection fraction 68%. IN CONCLUSION: 1. The patient tolerated Lexiscan well. 2. Breast attenuation with typical female pattern with no significant ischemia or infarction on SPECT images. 3. Normal left ventricular size with normal contractility. Calculated ejection fraction 68%. Job ID: [id number] DocumentID: [id number] Dictated Date: 06/17/2019 16:15:58 Fourth Officer Date: 06/17/2019 19:43:00 Dictated By: TYLER FLORIAN MD
--- NOTE | 2019-06-17 21:17 | Discharge Summary ---
Diagnosis/Chief Complaint Date of Admission Jun 15, 2019 at 10:12 Date of Discharge Jun 16, 2019 at 15:15 Admission Diagnosis Admission Diagnosis 1.chest pain suggestive of angina pectoris. 2.history of hypertension. 3.history of breast cancer with left mastectomy 6 years ago. 4.hypercholesterolemia. 5.history of tobaccoism. Stopped smoking 6 years. 6.history of diabetes with use of metformin. Discharge Diagnosis 1.chest pain suggestive of angina pectoris. 2.history of hypertension. 3.history of breast cancer with left mastectomy 6 years ago. 4.hypercholesterolemia. 5.history of tobaccoism. Stopped smoking 6 years. 6.history of diabetes with use of metformin. Chief Complaint/HPI Chief Complaint/HPI From Dr. 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 She had never had anything of this sort before. She does take blood pressure medicine and a cholesterol medicine. The pain also radiated to down her left arm and was quite intense and then also radiated to her jaw and across the back of the neck and down the right arm. Initial workup there did not confirm an acute myocardial infarction h owever the intensity and duration of her pain necessitated the transfer here for cardiology services." Discharge Summary-Simple/Stand Consultations Discharge Physical Examination Allergies: Coded Allergies: No Known Drug Allergies (Unverified , 01/24/18) Vitals & I&Os Vital Sign - Last 12Hours Date Time Temp Pulse Resp B/P (MAP) Pulse Ox O2 Delivery O2 Flow Rate FiO2 06/16/19 15:16 67 12 164/96 94 Room Air 06/16/19 03:50 97.0 Intake and Output 06/17/19 00:00 Intake Total 0 ml Output Total 300 ml Balance -300 ml General Appearance: Alert, No Acute Distress Respiratory: Clear to Auscultation, Normal Air Movement Cardiovascular: Regular Rate, No Murmurs Extremities: No Edema Psych/Mental Status: Mental Status NL Hospital Course Pt admitted and had stress test that was okay. Echo with nml EF and grade 1 diastolic dysfunction. Discharge Instructions to patient/family Please see electronic discharge instructions given to patient. Discharge Medications Reviewed and agree with Discharge Medication list on patient's Discharge Instruction sheet Clinical Quality Measures DVT/VTE Risk/Contraindication: Risk Factor Score Per Nursin RFS Level Per Nursing on Admit: 3=High RANDALL LOVE MD Jun 17, 2019 21:17
== END 2019-06-16 14:36 | disposition home or self-care (01) ==
LOC: EDUNIT# 08:39 → ER FS 08:40 → ICU 10:12 → UNDOADMOB 10:12 → ICU 12:05 → UNDODISOB 06-16 15:15
PROVIDERS: ADMIT Internal Medicine; ATTEND Family Medicine
DX: R07.9 Chest pain, unspecified (principal); E78.5 Hyperlipidemia, unspecified; J44.9 Chronic obstructive pulmonary disease, unspecified; E78.00 Pure hypercholesterolemia, unspecified; I10 Essential (primary) hypertension; E11.9 Type 2 diabetes mellitus without complications; E03.9 Hypothyroidism, unspecified; Z92.21 Personal history of antineoplastic chemotherapy; Z92.3 Personal history of irradiation; Z87.891 Personal history of nicotine dependence; Z79.82 Long term (current) use of aspirin; Z79.899 Other long term (current) drug therapy; Z90.710 Acquired absence of both cervix and uterus; Z85.3 Personal history of malignant neoplasm of breast; Z79.84 Long term (current) use of oral hypoglycemic drugs
CPT/HCPCS: 36415; 71045; 71275; 78452; 80053; 80061; 81000; 82962; 83605; 83735; 83874; 84100; 84484; 85025; 85027; 85610; 85730; 87088; 93005; 93017; 93041; 93306

== ENCOUNTER 2020-03-04 08:52 | Outpatient (RCR) | payer OTHER ==
[~2020-03-04] VITALS: Ht 154 cm; Wt 72.7 kg
[~2020-03-04 08:52] MED LIST changes: +CITA20TA9 PO; -GADOBUTROL 7.5 MMOL/7.5 ML (GADAVIST) VIAL IV ONE; +IBUP-30 PO; +LEVO50TA6 PO; +LISI-552 PO; +LISI1TAB25 PO; +MELO15TA39 PO; +METF-865 PO; +ROSU10TA28 PO
== END 2020-03-04 14:40 | disposition home or self-care (01) ==
LOC: PREOP 08:52
PROVIDERS: ATTEND Surgery
DX: Z01.818 Encounter for other preprocedural examination (principal); Z11.59 Encounter for screening for other viral diseases
CPT/HCPCS: 87635

== ENCOUNTER 2020-03-08 06:46 | Day surgery (SDC) | payer OTHER ==
[2020-03-08] MEDS ORDERED: LACTATED RINGERS 1,000 ML IV ONE (06:51)
--- OUTSIDE RECORDS SUMMARY | 2020-03-08 06:52 | XMS REPORT | Continuity of Care Document ---
Author Organization Unknown Address Unknown Phone Unavailable Allergies Active Description Code Type Severity Reaction Onset Reported/Identified Relationship to Patient Clinical Status Yes No Known Drug Allergies [id number] Drug Allergy Unknown N/A 03/01/2020 Medications Medication Packaging Start Date St op Date Route Dosage Sig Anastrozole 1 MG Oral Tablet TAB 04/21/2012 TAB 30 take one tablet by mouth every day Levothyroxine Sodium 25 MCG Oral Tablet Tablet 09/18/2016 Tablet TAKE 1 TABLET DAILY DIRECTED. TraMADol HCl - 50 MG Oral Tablet Tablet 09/25/2016 Tablet 6 one or two every 6 hrs. prn pain Problems Date Dx Coded Attending Type Code Diagnosis Diagnosed By 09/25/2016 Jone Santillan Working C50.8 12 Malignant neoplasm of overlapping sites of left female breast Jone Santillan 09/25/2016 Jone Santillan Working Z45.2 Encounter for adjustment and management of vascular access device Jone Santillan 01/27/2018 MARGIE BAGLEY W[employer]SERVATION SPECIALIST Ot G62 .9 POLYNEUROPATHY, UNSPECIFIED 01/27/2018 MARGIE BAGLEY W[employer] CONSERVATION SPECIALIST Ot M46.86 OTHER SPECIFIED INFLAMMATORY SPONDYLOPAT 01/27/2018 MARGIE BAGLEY W[employer] CONSERVATION SPECIALIST Ot M47.816 SPONDYLOSIS W/O MYELOPATHY OR RADICULOPA 01/27/2018 MARGIE BAGLEY W[employer] CONSERVATION SPECIALIST Ot M51.27 OTHER INTERVERTEBRAL DISC DISPLACEMENT, 01/27/2018 MARGIE BAGLEY W[employer] CONSERVATION SPECIALIST Ot W19.XXXA UNSPECIFIED FALL, INITIAL ENCOUNTER 02/14/2018 MARGIE BAGLEY [employer] CONSERV[employer] SPECIALIST Ot G62 .9 POLYNEUROPATHY, UNSPECIFIED 02/14/2018 MARGIE BAGLEY W[employer] CONSERVATION SPECIALIST Ot M46.86 OTHER SPECIFIED INFLAMMATORY SPONDYLOPAT 02/14/2018 MARGIE BAGLEY W[employer] CONSERVATION SPECIALIST Ot M47.816 SPONDYLOSIS W/O MYELOPATHY OR RADICULOPA 02/14/2018 MARGIE BAGLEY W[employer] CONSERVATION SPECIALIST Ot M51.27 OTHER INTERVERTEBRAL DISC DISPLACEMENT, 02/14/2018 MARGIE BAGLEY L W[employer] CONSERVATION SPECIALIST Ot W19.XXXA UNSPECIFIED FALL, INITIAL ENCOUNTER 02/20/2018 MARGIE BAGLEY L W[employer] CONSERVATION SPECIALIST Ot G62 .9 POLYNEUROPATHY, UNSPECIFIED 02/20/2018 CHAPIS BAGLEYI L WATER CONSERVATION SPECIALIST Ot M46.86 OTHER SPECIFIED INFLAMMATORY SPONDYLOPAT 02/20/2018 CHAPIS BAGLEYI L WATER CONSERVATION SPECIALIST Ot M47.816 SPONDYLOSIS W/O MYELOPATHY OR RADICULOPA 02/20/2018 CHAPIS BAGLEYI L WATER CONSERVATION SPECIALIST Ot M51.27 OTHER INTERVERTEBRAL DISC DISPLACEMENT, 02/20/2018 CHAPIS BAGLEYI L W[employer] CONSERVATION SPECIALIST Ot W19.XXXA UNSPECIFIED FALL, INITIAL ENCOUNTER 11/21/2018 MARGIE BAGLEY L W[employer] CONSERVATION SPECIALIST Ot G62 .9 POLYNEUROPATHY, UNSPECIFIED 11/21/2018 CHAPIS BAGLEYI L WATER CONSERVATION SPECIALIST Ot M46.86 OTHER SPECIFIED INFLAMMATORY SPONDYLOPAT 11/21/2018 CHAPIS BAGLEYI L WATER CONSERVATION SPECIALIST Ot M47.816 SPONDYLOSIS W/O MYELOPATHY OR RADICULOPA 11/21/2018 CHAPIS BAGLEYI L WATER CONSERVATION SPECIALIST Ot M51.27 OTHER INTERVERTEBRAL DISC DISPLACEMENT, 11/21/2018 CHAPIS BAGLEYI L WATER CONSERVATION SPECIALIST Ot W19.XXXA UNSPECIFIED FALL, INITIAL ENCOUNTER 06/16/2019 MARGIE BAGLEY L W[employer] CONSERVATION SPECIALIST Ot G62 .9 POLYNEUROPATHY, UNSPECIFIED 06/16/2019 CHAPIS BAGLEYI L WATER CONSERVATION SPECIALIST Ot M46.86 OTHER SPECIFIED INFLAMMATORY SPONDYLOPAT 06/16/2019 CHAPIS BAGLEYI L WATER CONSERVATION SPECIALIST Ot M47.816 SPONDYLOSIS W/O MYELOPATHY OR RADICULOPA 06/16/2019 CHAPIS BAGLEYI L WATER CONSERVATION SPECIALIST Ot M51.27 OTHER INTERVERTEBRAL DISC DISPLACEMENT, 06/16/2019 CHAPIS BAGLEYI L WATER CONSERVATION SPECIALIST Ot W19.XXXA UNSPECIFIED FALL, INITIAL ENCOUNTER 06/16/2019 IVAN BAKER, RANDALL Bravo Ot E03 .9 HYPOTHYROIDISM, UNSPECIFIED 06/16/2019 RANDALL LOVE MD Ot E11 .9 TYPE 2 DIABETES MELLITUS WITHOUT COMPLIC 06/16/2019 RANDALL LOVE MD Ot E78.00 PURE HYPERCHOLESTEROLEMIA, UNSPECIFIED 06/16/2019 RANDALL LOVE MD Ot E78 .5 HYPERLIPIDEMIA, UNSPECIFIED 06/16/2019 RANDALL LOVE MD, Ot I10 ESSENTIAL (PRIMARY) HYPERTENSION 06/16/2019 RANDALL LOVE MD, Ot J44 .9 CHRONIC OBSTRUCTIVE PULMONARY DISEASE, U 06/16/2019 RANDALL LOVE MD, Ot R07 .9 CHEST PAIN, UNSPECIFIED 06/16/2019 RANDALL LOVE MD, Ot Z79.82 SNF (CURRENT) USE OF ASPIRIN 06/16/2019 RANDALL LOVE MD Ot 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 06/16/2019 RANDALL LOVE MD Ot Z79.899 OTHER SNF (CURRENT) DRUG THERAPY 06/16/2019 RANDALL LOVE MD, Ot Z85 .3 PERSONAL HISTORY OF MALIGNANT NEOPLASM O 06/16/2019 RANDALL LOVE MD, Ot Z87.891 PERSONAL HISTORY OF NICOTINE DEPENDENCE 06/16/2019 RANDALL LOVE MD Ot Z90.710 ACQUIRED ABSENCE OF BOTH CERVIX AND UTER 06/16/2019 RANDALL LOVE MD Ot Z92.21 PERSONAL HISTORY OF ANTINEOPLASTIC CHEMO 06/16/2019 RANDALL LOVE MD, Ot Z92 .3 PERSONAL HISTORY OF IRRADIATION 06/16/2019 RANDALL LOVE MD, Ot E03 .9 HYPOTHYROIDISM, UNSPECIFIED 06/16/2019 RANDALL LOVE MD, Ot E11 .9 TYPE 2 DIABETES MELLITUS WITHOUT COMPLIC 06/16/2019 RANDALL LOVE MD Ot E78.00 PURE HYPERCHOLESTEROLEMIA, UNSPECIFIED 06/16/2019 RANDALL LOVE MD, Ot E78 .5 HYPERLIPIDEMIA, UNSPECIFIED 06/16/2019 RANDALL LOVE MD, Ot I10 ESSENTIAL (PRIMARY) HYPERTENSION 06/16/2019 RANDALL LOVE MD, Ot J44 .9 CHRONIC OBSTRUCTIVE PULMONARY DISEASE, U 06/16/2019 RANDALL LOVE MD, Ot R07 .9 CHEST PAIN, UNSPECIFIED 06/16/2019 RANDALL LOVE MD, Ot Z79.82 BUSINESS INTELLIGENCE ARCHITECT (CURRENT) USE OF ASPIRIN 06/16/2019 RANDALL LOVE MD Ot Z79.84 SNF (CURRENT) USE OF ORAL HYPOGLYC 06/16/2019 RANDALL LOVE MD Ot Z79.899 OTHER BUSINESS INTELLIGENCE ARCHITECT (CURRENT) DRUG THERAPY 06/16/2019 RANDALL LOVE MD, Ot Z85 .3 PERSONAL HISTORY OF MALIGNANT NEOPLASM O 06/16/2019 RANDALL LOVE MD, Ot Z87.891 PERSONAL HISTORY OF NICOTINE DEPENDENCE 06/16/2019 RANDALL LOVE MD Ot Z90.710 ACQUIRED ABSENCE OF BOTH CERVIX AND UTER 06/16/2019 RANDALL LOVE MD, Ot Z92.21 PERSONAL HISTORY OF ANTINEOPLASTIC CHEMO 06/16/2019 RANDALL LOVE MD, Ot Z92 .3 PERSONAL HISTORY OF IRRADIATION 02/24/2020 MARGIE BAGLEY W[employer]SERV[employer] SPECIALIST Ot G62 .9 POLYNEUROPATHY, UNSPECIFIED 02/24/2020 MARGIE BAGLEY W[employer] CONSERVATION SPECIALIST Ot M46.86 OTHER SPECIFIED INFLAMMATORY SPONDYLOPAT 02/24/2020 MARGIE BAGLEY W[employer] CONSERVATION SPECIALIST Ot M47.816 SPONDYLOSIS W/O MYELOPATHY OR RADICULOPA 02/24/2020 MARGIE BAGLEY W[employer] CONSERVATION SPECIALIST Ot M51.27 OTHER INTERVERTEBRAL DISC DISPLACEMENT, 02/24/2020 MARGIE BAGLEY W[employer] CONSERVATION SPECIALIST Ot W19.XXXA UNSPECIFIED FALL, INITIAL ENCOUNTER 03/02/2020 MARIAM NEWMAN DO Ot Z01.818 ENCOUNTER FOR OTHER PREPROCEDURAL EXAMIN 03/04/2020 MARIAM NEWMAN DO Ot Z01.818 ENCOUNTER FOR OTHER PREPROCEDURAL EXAMIN Procedures Code Description [place] [address] [place] ve Central Catheter W/port Jone Santillan 10/01/2016 Results Test Result Range [id number] - 01/24/18 08:49 Serum or plasma urea nitrogen measurement (mass/volume ) 28 mg/dL 7-18 Serum or plasma creatinine measurement (mass/volume) 0.88 mg/dL 0.60-1.30 Serum or plasma urea nitrogen/creatinine mass ratio 32 NRG Serum or plasma creatinine measurement w ith calculation of estimated glomerular filtration rate > NRG TSH w/ FREE T4 - 03/05/19 11:33 TSH 11.04 mIU/L 0.40-4.50 T4, FREE 1.0 ng/dL 0.8-1.8 LIPID PANEL - 03/05/19 11:33 CHOLESTEROL, TOTAL 149 mg/dL <200 HDL CHOLESTEROL 58 mg/dL >50 TRIGLYCERIDES 185 mg/dL <150 LDL-CHOLESTEROL 65 mg/dL (calc) NRG CHOL/HDLC RATIO 2.6 (calc) <5.0 NON HDL CHOLESTEROL 91 mg/dL (calc) <130 CMP - 03/05/19 11:33 GLUCOSE 106 mg/dL 65-99 UREA NITROGEN (BUN) 48 mg/dL 7-25 CREATININE 1.93 mg/dL 0.50-0.99 eGFR NON-AFR. SWAZI 27 mL/min/1.73m2 > OR = 60 eGFR 31 mL/min/1.73m2 > OR = 60 BUN/CREATININE RATIO 25 (calc) 6-22 SODIUM 139 mmol/L 135-146 POTASSIUM 4.2 mmol/L 3.5-5.3 CHLORIDE 104 mmol/L 98-110 CARBON DIOXIDE 24 mmol/L 20-32 CALCIUM 9.5 mg/dL 8.6-10.4 PROTEIN, TOTAL 7.0 g/dL 6.1-8.1 ALBUMIN 4.5 g/dL 3.6-5.1 GLOBULIN 2.5 g/dL (calc) 1.9-3.7 ALBUMIN/GLOBULIN RATIO 1.8 (calc) 1.0-2. 5 BILIRUBIN, TOTAL 0.3 mg/dL 0.2-1.2 ALKALINE PHOSPHATASE 83 U/L 33-130 AST 15 U/L 10-35 ALT 12 U/L 6-29 CBC w/MANUAL DIFF - 03/05/19 11:33 WHITE BLOOD CELL COUNT 10.2 Thousand/uL 3.8-10.8 RED BLOOD CELL COUNT 3.97 Million/uL 3.8 0-5.10 HEMOGLOBIN 11.5 g/dL 11.7-15.5 HEMATOCRIT 35.5 % 35.0-45.0 MCV 89.4 fL 80.0-100.0 MCH 29.0 pg 27.0-33.0 MCHC 32.4 g/dL 32.0-36.0 RDW 13.7 % 11.0-15.0 PLATELET COUNT 319 Thousand/uL 140-400 MPV 9.3 fL 7.5-12.5 ABSOLUTE NEUTROPHILS 7446 cells/uL 1500- 7800 ABSOLUTE MONOCYTES 714 cells/uL 200-950 ABSOLUTE EOSINOPHILS 204 cells/uL 15-500 ABSOLUTE BASOPHILS 0 cells/uL 0-200 NEUTROPHILS 73.0 % NRG LYMPHOCYTES 18.0 % NRG MONOCYTES 7.0 % NRG EOSINOPHILS 2.0 % NRG BASOPHILS 0 % NRG ABSOLUTE LYMPHOCYTES 1836 cells/uL 850-3 900 PLATELET ESTIMATION ADEQUATE ADEQUATE CBC MORPHOLOGY NORMAL COMMENT(S) NRG A1C - 03/05/19 11:33 HEMOGLOBIN A1c 6.9 % of total Hgb <5.7 TSH - 05/05/19 13:20 TSH 0.33 mIU/L 0.40-4.50 Complete blood count (CBC) with automate d white blood cell (WBC) differential - 06/15/19 08:50 Blood leukocytes automated count (number/volume) 7.5 10*3/uL 4.3-11.0 Blood erythrocytes automated count (number/volume) 4.00 10*6/uL 4.35-5.85 Venous blood hemoglobin measurement (mass/volume) 11.5 g/dL 11.5-16.0 Blood hematocrit (volume fraction) 35 % 35-52 Automated erythrocyte mean corpuscular volume 88 [ foz_us] 80-99 Automated erythrocyte mean corpuscular h emoglobin (mass per erythrocyte) 29 pg 25-34 Automated erythrocyte mean corpuscular h emoglobin concentration measurement (mass/volume) 33 g/dL 32-36 Automated erythrocyte distribution width ratio 13. 3 % 10.0- 14.5 Automated blood platelet count (count/volume) 286 10*3/uL 130-400 Automated blood platelet mean volume measurement 9.0 [foz_us] 7.4-10.4 Automated blood neutrophils/100 leukocytes 66 % 42-75 Automated blood lymphocytes/100 leukocytes 24 % 12-44 Blood monocytes/100 leukocytes 7 % 0-12 Automated blood eosinophils/100 leukocytes 3 % 0-10 Automated blood basophils/100 leukocytes 0 % 0-10 Blood neutrophils automated count (number/volume) 4.9 10*3 1.8-7.8 Blood lymphocytes automated count (number/volume) 1.8 10*3 1.0-4.0 Blood monocytes automated count (number/volume) 0. 5 10*3 0.0-1.0 Automated eosinophil count 0.2 10*3/uL 0 .0-0.3 Automated blood basophil count (count/volume) 0.0 10*3/uL 0.0-0.1 Comprehensive metabolic panel - 06/15/19 08:50 Serum or plasma sodium measurement (moles/volume) 142 mmol/L 135-145 Serum or plasma potassium measurement (moles/volume) 3.6 mmol/L 3.6-5.0 Serum or plasma chloride measurement (moles/volume) 99 mmol/L 98-107 Carbon dioxide 25 mmol/L 21-32 Serum or plasma anion gap determination (moles/volume) 18 mmol/L 5-14 Serum or plasma urea nitrogen measurement (mass/volume ) 29 mg/dL 7-18 Serum or plasma creatinine measurement (mass/volume) 1.28 mg/dL 0.60-1.30 Serum or plasma urea nitrogen/creatinine mass ratio 23 NRG Serum or plasma creatinine measurement w ith calculation of estimated glomerular filtration rate 42 NRG Serum or plasma glucose measurement (mass/volume) 120 mg/dL 70-105 Serum or plasma calcium measurement (mass/volume) 10.0 mg/dL 8.5-10.1 Serum or plasma total bilirubin measurement (mass/volu me) 0.4 mg/dL 0.1-1.0 Serum or plasma alkaline phosphatase jia surement (enzymatic activity/volume) 66 U/L 40-136 Serum or plasma aspartate aminotransfera se measurement (enzymatic activity/volume) 19 U/L 5-34 Serum or plasma alanine aminotransferase measurement (enzymatic activity/volume) 12 U/L 0-55 Serum or plasma protein measurement (mass/volume) 7.9 g/dL 6.4-8.2 Serum or plasma albumin measurement (mass/volume) 4.8 g/dL 3.2-4.5 Magnesium - 06/15/19 08:50 Magnesium 1.3 mg/dL 1.6-2.4 Myoglobin, serum - 06/15/19 08:50 Myoglobin, serum 109.5 ng/mL 10.0-92.0 Serum or plasma troponin i.cardiac measu rement (mass/volume) - 06/15/19 08:50 Serum or plasma troponin i.cardiac measurement (mass/v olume) < ng/mL <0.30 PT panel in platelet poor plasma by coag ulation assay - 06/15/19 08:50 Prothrombin time (PT) in platelet poor plasma by coagu lation assay 13.1 s 12.2-14.7 INR in platelet poor plasma or blood by coagulation as say 1.0 0.8-1.4 Activated partial thromboplastin time (a PTT) in platelet poor plasma bycoagulation assay - 06/15/19 08:50 Activated partial thromboplastin time (a PTT) in platelet poor plasma bycoagulation assay 27 s 24-35 Complete blood count (CBC) with automate d white blood cell (WBC) differential - 06/16/19 03:15 Blood leukocytes automated count (number/volume) 6.2 10*3/uL 4.3-11.0 Blood erythrocytes automated count (number/volume) 3.83 10*6/uL 4.35-5.85 Venous blood hemoglobin measurement (mass/volume) 11.0 g/dL 11.5-16.0 Blood hematocrit (volume fraction) 34 % 35-52 Automated erythrocyte mean corpuscular volume 89 [ foz_us] 80-99 Automated erythrocyte mean corpuscular h emoglobin (mass per erythrocyte) 29 pg 25-34 Automated erythrocyte mean corpuscular h emoglobin concentration measurement (mass/volume) 32 g/dL 32-36 Automated erythrocyte distribution width ratio 13. 7 % 10.0- 14.5 Automated blood platelet count (count/volume) 136 10*3/uL 130-400 Automated blood platelet mean volume measurement 9.6 [foz_us] 7.4-10.4 Automated blood neutrophils/100 leukocytes 52 % 42-75 Automated blood lymphocytes/100 leukocytes 37 % 12-44 Blood monocytes/100 leukocytes 7 % 0-12 Automated blood eosinophils/100 leukocytes 4 % 0-10 Automated blood basophils/100 leukocytes 0 % 0-10 Blood neutrophils automated count (number/volume) 3.2 10*3 1.8-7.8 Blood lymphocytes automated count (number/volume) 2.3 10*3 1.0-4.0 Blood monocytes automated count (number/volume) 0. 4 10*3 0.0-1.0 Automated eosinophil count 0.2 10*3/uL 0 .0-0.3 Automated blood basophil count (count/volume) 0.0 10*3/uL 0.0-0.1 Comprehensive metabolic panel - 06/16/19 03:15 Serum or plasma sodium measurement (moles/volume) 141 mmol/L 135-145 Serum or plasma potassium measurement (moles/volume) 4.2 mmol/L 3.6-5.0 Serum or plasma chloride measurement (moles/volume) 107 mmol/L 98-107 Carbon dioxide 20 mmol/L 21-32 Serum or plasma anion gap determination (moles/volume) 14 mmol/L 5-14 Serum or plasma urea nitrogen measurement (mass/volume ) 22 mg/dL 7-18 Serum or plasma creatinine measurement (mass/volume) 1.14 mg/dL 0.60-1.30 Serum or plasma urea nitrogen/creatinine mass ratio 19 NRG Serum or plasma creatinine measurement w ith calculation of estimated glomerular filtration rate 48 NRG Serum or plasma glucose measurement (mass/volume) 81 mg/dL 70-105 Serum or plasma calcium measurement (mass/volume) 8.7 mg/dL 8.5-10.1 Serum or plasma total bilirubin measurement (mass/volu me) 0.4 mg/dL 0.1-1.0 Serum or plasma alkaline phosphatase jia surement (enzymatic activity/volume) 53 U/L 40-136 Serum or plasma aspartate aminotransfera se measurement (enzymatic activity/volume) 17 U/L 5-34 Serum or plasma alanine aminotransferase measurement (enzymatic activity/volume) 11 U/L 0-55 Serum or plasma protein measurement (mass/volume) 6.6 g/dL 6.4-8.2 Serum or plasma albumin measurement (mass/volume) 4.0 g/dL 3.2-4.5 CALCIUM CORRECTED 8.7 mg/dL 8.5-10.1 Serum or plasma phosphate measurement (m ass/volume) - 06/16/19 03:15 Serum or plasma phosphate measurement (mass/volume) 3.6 mg/dL 2.3-4.7 Magnesium - 06/16/19 03:15 Magnesium 1.5 mg/dL 1.6-2.4 Serum or plasma troponin i.cardiac measu rement (mass/volume) - 06/16/19 03:15 Serum or plasma troponin i.cardiac measurement (mass/v olume) < ng/mL <0.028 Lipid 1996 panel - 06/16/19 03:15 Serum or plasma triglyceride measurement (mass/volume) 120 mg/dL <150 Serum or plasma cholesterol measurement (mass/volume) 120 mg/dL < 200 Serum or plasma cholesterol in HDL measurement (mass/v olume) 53 mg/dL 40-60 Cholesterol in LDL [mass/volume] in serum or plasma by direct assay 39 mg/dL 1-129 Serum or plasma cholesterol in VLDL measurement (mass/ volume) 24 mg/dL 5-40 Blood lactic acid measurement (moles/vol ume) - 06/16/19 07:05 Blood lactic acid measurement (moles/volume) 0.69 mmol/L 0.50-2.00 Complete urinalysis with reflex to cultu re - 06/16/19 10:46 Urine color determination YELLOW NRG Urine clarity determination CLEAR NR G Urine pH measurement by test strip 5 5-9 Specific gravity of urine by test strip 1.010 1.016-1.022 Urine protein assay by test strip, semi-quantitative NEGATIVE NEGATIVE Urine glucose detection by automated test strip NE GATIVE NEGATIVE Erythrocytes detection in urine sediment by light micr oscopy 1+ NEGATIVE Urine ketones detection by automated test strip NE GATIVE NEGATIVE Urine nitrite detection by test strip NEGATIVE NEGATIVE Urine total bilirubin detection by test strip NEGA TIVE NEGATIVE Urine urobilinogen measurement by automated test strip (mass/volume) NORMAL NORMAL Urine leukocyte esterase detection by dipstick 3+ NEGATIVE Automated urine sediment erythrocyte cou nt by microscopy (number/high power field) [HPF] NRG Automated urine sediment leukocyte count by microscopy (number/high power field) [HPF] NRG Bacteria detection in urine sediment by light microsco py MODERATE NRG Squamous epithelial cells detection in u rine sediment by light microscopy 10-25 NRG Crystals detection in urine sediment by light microsco py NONE NRG Casts detection in urine sediment by light microscopy NONE NRG Mucus detection in urine sediment by light microscopy NEGATIVE NRG Complete urinalysis with reflex to culture YES NRG Bacterial urine culture - 06/16/19 10:46 Bacterial urine culture 3 OR MORE NRG COLONY COUNT >100,000/ML NRG FTX;REPORTABLE GRAM POSITIVES, SUGGESTING PROBABLE NRG FREE TEXT ENTRY 2 COLLECTION CONTAMINATION WITH SK IN JAMES NRG FREE TEXT ENTRY 3 NO SUSCEPTIBILITY PERFORMED NRG Capillary blood glucose measurement by g lucometer (mass/volume) - 06/16/19 12:58 Capillary blood glucose measurement by glucometer (mas s/volume) 110 mg/dL 70-110 UA W/ MICROSCOPY - 06/19/19 13:23 COLOR YELLOW YELLOW APPEARANCE CLOUDY CLEAR SPECIFIC GRAVITY 1.020 1.001-1.035 PH 5.5 5.0-8.0 GLUCOSE NEGATIVE NEGATIVE BILIRUBIN NEGATIVE NEGATIVE KETONES NEGATIVE NEGATIVE OCCULT BLOOD 1+ NEGATIVE PROTEIN NEGATIVE NEGATIVE NITRITE NEGATIVE NEGATIVE LEUKOCYTE ESTERASE 3+ NEGATIVE WBC 20-40 /HPF < OR = 5 RBC 10-20 /HPF < OR = 2 SQUAMOUS EPITHELIAL CELLS 10-20 /HPF < O R = 5 BACTERIA MODERATE /HPF NONE SEEN HYALINE CAST 10-20 /LPF NONE SEEN TRANSITIONAL EPITHELIAL CELLS 0-5 /HPF < OR = 5 TSH - 06/19/19 13:23 TSH 4.17 mIU/L 0.40-4.50 A1C - 06/19/19 13:23 HEMOGLOBIN A1c 6.6 % of total Hgb <5.7 CULTURE, URINE - 06/29/19 14:38 CULTURE, URINE, ROUTINE SEE NOTE NRG Coronavirus SARS-CoV-2 SO 2018 - 0 12:39 Coronavirus Ab [Units/volume] in Serum Negative Negative Encounters ACCT No. Visit Date/Time Discharge Status Pt. Type Provider Facility Loc./Unit Complaint [id number] 04/29/2017 01:46:37 ACT Outpatient [facility] 1 [id number] 12/03/2016 20:40:28 ACT Outpatient [facility] 1 [id number] 11/21/2016 19:54:15 ACT Outpatient [facility] 225 [id number] 11/16/2016 05:40:00 ACT Outpatient [facility] 1 [id number] 10/19/2016 02:10:29 Document Registration [id number] 03/04/2020 08:52:00 020 14:40:00 DIS Outpatient MARIAM NEWMAN DO [facility] PREOP COLONOSCOPY [id number] 06/15/2019 10:12:00 019 15:15:00 DIS Inpatient RANDALL LOVE MD [facility] ICU CHEST PAIN [id number] 11/21/2018 10:05:00 019 23:59:59 CLS Preadmit MICHELLE PICKETT [employer]IST [facility] RAD LEFT LOWER LOBE PULMONA RY NODULE [id number] 01/24/2018 08:36:00 018 23:59:59 CLS Outpatient MARGIE BAGLEY W[employer] SPECIALIST [facility] RAD RADIATING LUMBAR PAIN I NTO L GROIN/HIP [id number] 03/08/2020 08:00:00 P EN Preadmit MARIAM NEWMAN DO [facility] ENDO SCREENING [id number] 12/31/2019 13:30:00 12/31/2019 23:59: 59 [facility] Outpatient MICHELLE PICKETT [facility] [id number] 06/29/2019 14:15:00 Document Registration [id number] 06/19/2019 13:00:00 Document Registration [id number] 05/05/2019 13:00:00 Document Registration [id number] 03/05/2019 10:40:00 Document Registration
[2020-03-08] MEDS ORDERED: LACTATED RINGERS 1,000 ML IV STA (07:26)
[2020-03-08 07:31] VITALS: BP 132/86
[2020-03-08] MEDS ORDERED: proPOfol 200 MG/20 ML (DIPRIVAN) VIAL IV ONE (07:33)
[2020-03-08] MEDS ORDERED: MIDAZOLAM 2 MG/2 ML (VERSED) VIAL ONE (07:33)
[2020-03-08 08:04] VITALS: BP 74/46
--- NOTE | 2020-03-08 08:12 | Progress Note-Pre Operative ---
Pre-Operative Progress Note H&P Reviewed The H&P was reviewed, patient examined and no changes noted. Date Seen by Provider: March 08, 2020 Time Seen by Provider: 07:47 Date H&P Reviewed: March 08, 2020 Time H&P Reviewed: 07:47 Pre-Operative Diagnosis: screening colonoscopy MARIAM NEWMAN DO March 08, 2020 08:12
--- NOTE | 2020-03-08 08:33 | Progress Note-Post Operative ---
Post-Operative Progess Note Surgeon (s)/Prosthetic Dentist (s) Surgeon MARIAM NEWMAN DO Prosthetic Dentist: na Pre-Operative Diagnosis screening colonoscopy Post-Operative Diagnosis diverticulosis Procedure & Operative Findings Date of Procedure 03/08/20 Procedure Performed/Findings colonoscopy Anesthesia Type per [facility] Estimated Blood Loss Estimated blood loss (mL): none Specimens/Packing Specimens Removed na MARIAM NEWMAN DO March 08, 2020 08:33
[2020-03-08 08:35] VITALS: BP 109/63
--- NOTE | 2020-03-08 08:37 | Discharge Inst-Simple/Standard ---
Discharge Inst-Standard Patient Instructions/Follow Up Plan of Care/Instructions/FU: Repeat colonoscopy in 10 years unless family history of colon cancer which would be 5 years. Any issues before that be seen at that time. Activity as Tolerated: Yes Discharge Diet: Regular Diet (high fiber) MARIAM NEWMAN DO March 08, 2020 08:37
[2020-03-08 08:40] VITALS: BP 109/63
[2020-03-08 09:00] VITALS: BP 139/87
[2020-03-08 10:10] VITALS: BP 139/87
--- NOTE | 2020-03-08 11:06 | Anesthesia-General Post-Op ---
MAC Patient Condition Mental Status/LOC: Same as Preop Cardiovascular: Satisfactory Nausea/Vomiting: Absent Respiratory: Satisfactory Pain: Controlled Complications: Absent Post Op Complications Complications None Follow Up Care/Instructions Patient Instructions None needed. Anesthesiology Discharge Order Discharge Order Patient was seen this morning after the procedure and she was doing well, no complaints, stable vital signs, no apparent adverse anesthesia problems. ALIX RIOS DO March 08, 2020 11:06
--- NOTE | 2020-03-08 13:43 | OPERATIVE REPORT ---
DATE OF SERVICE: 03/08/2020 PREOPERATIVE DIAGNOSIS: Screening colonoscopy. POSTOPERATIVE DIAGNOSIS: Diverticulosis. PROCEDURE: Colonoscopy. SURGEON: Mariam Maddox DO ANESTHESIA: Per MDA. ESTIMATED BLOOD LOSS: None. COMPLICATIONS: None. INDICATIONS: The patient is a 64-year-old female needing screening colonoscopy. She understands risks and benefits of procedure and wished to proceed with procedure. Consent was signed in the chart. DESCRIPTION OF PROCEDURE: The patient was taken to the endoscopy suite, placed in left lateral recumbent position. Timeout was performed. Digital rectal exam was performed. There were no palpable polyps, masses or ulcerations. Scope was inserted in the rectum, advanced all the way to the cecum with minimal difficulty. Prep was adequate. Scope was then slowly retracted back. There were no polyps, masses or ulcerations within the cecum, ascending, transverse, descending and sigmoid colon. A minimal amount of diverticulosis present through the left side of the colon. Scope was then continuously retracted back into the rectum, where it was also retroflexed noting no other pathology. Scope was returned to its normal position, slowly withdrawn until completely removed. The patient tolerated procedure well without any complications. She was taken to recovery room in stable condition. RECOMMENDATIONS: The patient will need repeat colonoscopy in 10 years unless family history of colon cancer, which would then be 5 years. Recommend high fiber diet due to diverticulosis. Any issues before that be seen at that time, otherwise follow up per routine screening guidelines. Job ID: [id number] DocumentID: [id number] Dictated Date: 03/08/2020 08:39:21 Wire Frame Maker Date: 03/08/2020 13:42:41 Dictated By: MARIAM MADDOX DO
== END 2020-03-08 09:10 | disposition home or self-care (01) ==
LOC: ENDO 06:46
PROVIDERS: ATTEND Surgery
DX: Z12.11 Encounter for screening for malignant neoplasm of colon (principal); K57.30 Diverticulosis of large intestine without perforation or abscess without bleeding; I10 Essential (primary) hypertension; E78.5 Hyperlipidemia, unspecified; E11.9 Type 2 diabetes mellitus without complications; M19.90 Unspecified osteoarthritis, unspecified site; F41.9 Anxiety disorder, unspecified; F32.9 Major depressive disorder, single episode, unspecified; Z85.3 Personal history of malignant neoplasm of breast; Z90.710 Acquired absence of both cervix and uterus; Z79.84 Long term (current) use of oral hypoglycemic drugs; Z79.899 Other long term (current) drug therapy

== ENCOUNTER → 2020-04-12 | Outpatient (CLI) | payer OTHER ==
--- NOTE | 2020-04-12 16:34 | Diagnostic Imaging Report ---
INDICATION: Neck pain. TIME OF EXAM: 2:37 PM. FINDINGS: Three-views of the cervical spine were obtained. FINDINGS: The curvature of the cervical spine is normal. There is minimal anterolisthesis of C5 on C6. There is multilevel degenerative disc and facet disease. Variable disc space narrowing and marginal spurring are noted, greatest at the C5-C6 and C6-C7 levels. The prevertebral tissues are within normal limits. The odontoid is intact. No fractures are seen. IMPRESSION: Cervical spondylosis. No acute bony abnormality is detected. Dictated by: Dictated on workstation # [id number]
== END ==
LOC: RAD FS 14:34
PROVIDERS: ATTEND Nurse Practitioner Family
DX: M47.812 Spondylosis without myelopathy or radiculopathy, cervical region (principal); S16.1XXA Strain of muscle, fascia and tendon at neck level, initial encounter
CPT/HCPCS: 72040

== ENCOUNTER 2020-09-09 08:53 | Observation (INO) | payer OTHER ==
[~2020-09-09] VITALS: Ht 154.9 cm; Wt 72.9 kg
[~2020-09-09 08:53] MED LIST changes: -LISI1TAB25 PO; +LISI1TAB46 PO
[2020-09-09] MEDS ORDERED: NS IV 1000 ML 1,000 ML IV SCH (09:13)
[2020-09-09] MEDS ORDERED: ASPIRIN 325 MG (5 GR) TABLET PO ONE (09:15)
--- NOTE | 2020-09-09 09:26 | ED General ---
General Chief Complaint: SOA Stated Complaint: DIZZY; SOB; DIAPHORESIS; TACHY; BP 80/40 History of Present Illness Date Seen by Provider: Sep 09, 2020 Time Seen by Provider: 09:00 Initial Comments The patient is a 64-year-old female with a history of hypertension, hyperlipidemia, xfo-nfealzs-iyoxltfkj diabetes, COPD not on home oxygen (quit smoking about 7 years ago), history of breast cancer status post mastectomy in remission for some time now. Patient presents for evaluation of shortness of breath and lightheadedness with onset last evening while she was at home. 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 She reports associated continued shortness of air (she is intermittently appearing to struggle/gasp for breath however oxygen saturation is in the high 90s on room air and lungs are clear and she is not at all conversationally dyspneic, so unknown at this time if this relates to an organic etiology or is secondary to anxiety) as well as dull, mild, poorly characterized substernal chest pressure with onset at some point earlier this mornin She endorses nasal congestion that is chronic and baseline for her and is not different or worse t mark. She denies fevers, nausea or vomiting, cough, flank pain, back pain, abdominal pain, dysuria or hematuria, changes in bowel habits. Patient is alert and pleasantly and appropriately interactive and in no acute distress upon initial assessment here in the emergency department. She is pink, warm and dry. Vital signs including oxygenation, blood pressure and heart rate are generally appropriate here. Allergies and Home Medications Allergies Coded Allergies: No Known Drug Allergies (Unverified , 03/01/20) Home Medications Citalopram Hydrobromide 20 Mg Tablet, 20 MG PO HS, (Reported) Levothyroxine Sodium 50 Mcg Tablet, 25 MCG PO DAILY, (Reported) TAKES 1/2 (50MCG) TABLET Lisinopril 20 Mg Tablet, 20 MG PO HS, (Reported) Lisinopril/Hydrochlorothiazide 1 Each Tablet, 1 TAB PO DAILY, (Reported) Meloxicam 15 Mg Tablet, 15 MG PO DAILY, (Reported) Metformin HCl 500 Mg Tab.er.24h, 500 MG PO DAILY, (Reported) Rosuvastatin Calcium 10 Mg Tablet, 10 MG PO HS, (Reported) Patient Home Medication List Home Medication List Reviewed: Yes Review of Systems Review of Systems Constitutional: see HPI All Other Systems Reviewed Negative Unless Noted: Yes (Negative excepted noted.) Past Vqsjfpo-Lphmbp-Lpukmz Hx Past Med/Social Hx: Reviewed Nursing Past Med/Soc Hx Patient Social History Type Used: Cigarettes Former Smoker, Quit: Jun 28, 2013 2nd Hand Smoke Exposure: No Recent Foreign Travel: No Contact w/Someone Who Travel: No Recent Hopitalizations: No Immunizations Up To Date Date of Influenza Vaccine: Jul 20, 2019 Seasonal Allergies Seasonal Allergies: No Past Medical History Surgeries: Yes (left mastectomy, R HAND SKIN CANCER) Hysterectomy Respiratory: Yes COPD Cardiac: Yes High Cholesterol, Hypertension 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 Sexually Transmitted Disease: No HIV/AIDS: No Genitourinary: No Gastrointestinal: Yes Gastroesophageal Reflux Musculoskeletal: Yes (BACK) Arthritis Endocrine: Yes Hypothyroidsim, Diabetes, Non-Insulin dep HEENT: No (GLASSES) Loss of Vision: Denies Hearing Impairment: Denies Cancer: Yes Breast Did You Recieve Any Treatments: Yes What Type of Treatment Did You: Chemotherapy, Radiation, Surgical Intervention Psychosocial: Yes Anxiety, Depression Integumentary: No Blood Disorders: No Adverse Reaction/Blood Tranf: No (N/A) Family Medical History Reviewed Nursing Family Hx Physical Exam Vital Signs Vital Signs - First Documented 09/09/20 09:00 Temp 36.1 Pulse 105 Resp 26 B/P (MAP) 116/85 (95) Pulse Ox 100 O2 Delivery Room Air Capillary Refill : Height, Weight, BMI Height: 5'1.00" Weight: 156lbs. 0.0oz. 70.601840on; 30.65 BMI Method:Stated General Appearance: No Apparent Distress Comments This is an elderly female appearing nontoxic and in no acute distress. She does intermittently appear to breathe deeply/gasp somewhat for breath, although she is not conversationally dyspneic and speaks in full sentences. She states "I just feel like I can't get a good deep breath in." Head is normocephalic and atraumatic. Neck is supple and nontender. Oropharynx is moist. Lungs are clear to auscultation in all stations. There are no wheezes, rales or rhonchi. There is a normal S1 and S2 without rubs or gallops and capillary refill is appropriate, less than 2 seconds globally. Peripheral pulses are 2+ and equal bilaterally, to bilateral radials, DPs and PTs. There is no dependent peripheral edema noted to bilateral legs and there is no calf tenderness or swelling or erythema noted bilaterally. Abdomen is soft, nontender nondistended. Skin is warm and dry without cyanosis, clubbing or edema. Psychiatrically, the patient demonstrates appropriate mood and affect and is alert. Progress/Results/Core Measures Suspected Sepsis SIRS Temperature: Pulse: Respiratory Rate: Laboratory Tests 09/09/20 10:20: White Blood Count 12.6H Blood Pressure / Mean: Laboratory Tests 09/09/20 10:20: Creatinine 2.23H, Platelet Count 334, Total Bilirubin 0.3 Results/Orders Lab Results Laboratory Tests Test 09/09/20 10:20 09/09/20 10:25 09/09/20 10:35 Range/Units White Blood Count 12.6 H 4.3-11.0 10^3/uL Red Blood Count 4.29 L 4.35-5.85 10^6/uL Hemoglobin 12.5 11.5-16.0 G/DL Hematocrit 37 35-52 % Mean Corpuscular Volume 87 80-99 FL Mean Corpuscular Hemoglobin 29 25-34 PG Mean Corpuscular Hemoglobin Concent 34 32-36 G/DL Red Cell Distribution Width 13.3 10.0-14.5 % Platelet Count 334 130-400 10^3/uL Mean Platelet Volume 9.8 7.4-10.4 FL Immature Granulocyte % (Auto) 1 % Neutrophils (%) (Auto) 77 H 42-75 % Lymphocytes (%) (Auto) 15 12-44 % Monocytes (%) (Auto) 5 0-12 % Eosinophils (%) (Auto) 2 0-10 % Basophils (%) (Auto) 1 0-10 % Neutrophils # (Auto) 9.7 H 1.8-7.8 X 10^3 Lymphocytes # (Auto) 1.9 1.0-4.0 X 10^3 Monocytes # (Auto) 0.7 0.0-1.0 X 10^3 Eosinophils # (Auto) 0.2 0.0-0.3 10^3/uL Basophils # (Auto) 0.1 0.0-0.1 10^3/uL Immature Granulocyte # (Auto) 0.1 0.0-0.1 10^3/uL Sodium Level 137 135-145 MMOL/L Potassium Level 3.4 L 3.6-5.0 MMOL/L Chloride Level 95 L 98-107 MMOL/L Carbon Dioxide Level 25 21-32 MMOL/L Anion Gap 17 H 5-14 MMOL/L Blood Urea Nitrogen 40 H 7-18 MG/DL Creatinine 2.23 H 0.60-1.30 MG/DL Estimat Glomerular Filtration Rate 22 BUN/Creatinine Ratio 18 Glucose Level 145 H 70-105 MG/DL Calcium Level 10.0 8.5-10.1 MG/DL Corrected Calcium 9.6 8.5-10.1 MG/DL Total Bilirubin 0.3 0.1-1.0 MG/DL Aspartate Amino Transf (AST/SGOT) 17 5-34 U/L Alanine Aminotransferase (ALT/SGPT) 14 0-55 U/L Alkaline Phosphatase 90 40-136 U/L Troponin I < 0.30 <0.30 NG/ML Pro-B-Type Natriuretic Peptide 4475.0 H <75.0 PG/ML Total Protein 7.5 6.4-8.2 GM/DL Albumin 4.5 3.2-4.5 GM/DL Blood Gas Puncture Site RT RAD Blood Gas Patient Temperature 36.1 Arterial Blood pH 7.46 H 7.37-7.43 Arterial Blood Partial Pressure CO2 40 35-45 MMHG Arterial Blood Partial Pressure O2 76 L 79-93 MMHG Arterial Blood HCO3 28 H 23-27 MMOL/L Arterial Blood Total CO2 29.6 21.0-31.0 MMOL/L Arterial Blood Oxygen Saturation 96 94-100 % Arterial Blood Base Excess 4.2 H -2.5-2.5 MMOL/L Godwin Test YES-POS Blood Gas Ventilator Setting NO Blood Gas Inspired Oxygen ROOM AIR D-Dimer 7.91 H 0.00-0.49 UG/ML My Orders Orders - SILVIA TOWNSEND MD Cbc With Automated Diff (09/09/20 09:13) Comprehensive Metabolic Panel (09/09/20 09:13) Troponin I Fs (09/09/20 09:13) Ekg Tracing (09/09/20 09:13) Chest 1 View Ap/Pa Only (09/09/20 09:13) Fibrin Degradation Products (09/09/20 09:13) Probnp Fs (09/09/20 09:13) Aspirin Tablet (Aspirin Tablet) (09/09/20 09:15) Coronavirus Sars-Cov-2 So 2019 (09/09/20 09:13) Ed Iv/Invasive Line Start (09/09/20 09:13) Ns Iv 1000 Ml (Sodium Chloride 0.9%) (09/09/20 09:13) Arterial Blood Gas (09/09/20 09:19) Ua Culture If Indicated (09/09/20 10:40) Medications Given in ED Current Medications Medications Dose Ordered Sig/Cleo Route Start Time Stop Time Status Last Admin Dose Admin Aspirin 325 mg ONCE ONCE PO 09/09/20 09:15 09/09/20 09:17 DC 09/09/20 10:35 325 MG Vital Signs/I&O 09/09/20 09:00 Temp 36.1 Pulse 105 Resp 26 B/P (MAP) 116/85 (95) Pulse Ox 100 O2 Delivery Room Air Capillary Refill : Progress Note : Time: 09:30 Progress Note Elderly female with various cardiorespiratory comorbidities who presents for evaluation of shortness of breath and lightheadedness since last evening, in association with poorly characterized chest pressure beginning today. 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 Vital signs and clinical examination are quite reassuring; patient is intermittently seeming to have some difficulty breathing without abnormalities on auscultation to suggest a cause for this. Review of records demonstrates that she has had a negative stress test and echocardiogram within the last year. She is reportedly tested for COVID several times a week at her job so low suspicion but we will retest. We'll check labs and EKG and chest x- ray and will then reevaluate. We'll give a full strength aspirin. No indication for bronchodilator or steroid therapy at this time as patient is not wheezing. Anticipate likely observation admission given dyspnea even if workup is reassuring. 1105: Patient is resting comfortably in no acute distress upon reassessment. Occasional gasping respirations noted above are "a nervous habit when I'm wearing a mask" according to the patient and are not reflective of any actual dyspnea. Workup is complete aside from d-dimer which is still pending; patient was an extremely difficult blood draw. Workup is remarkable for likely acute renal insufficiency with elevated BUN/creatinine (creatinine above 2) without documented history of chronic renal insufficiency. BNP is also elevated without findings of fluid overload on chest x-ray, hypoxia or peripheral edema. I note the patient did have an essentially normal echocardiogram at [place] last year. Patient is on lisinopril and hydrochlorothiazide, possibly leading to some nephrotoxicity. She has received a liter of fluids. Vital signs are appropriate. Will need admission for ACS rule out, gentle hydration and further care. Dr. Stewart graciously accepts for [place] admission. Dr. Stewart is advised that d-dimer still pending at this time and if positive patient will likely need a VQ scan to rule out PE, though low suspicion based on overall clinical scenario at this point. Have given a full strength aspirin but we'll hold off on empiric heparin. Stable for transfer. Patient is noted to have a significantly prolonged QT interval on EKG and on the monitor. QT prolonging medications should be assiduously avoided and she may benefit from cardiology input given presyncope and prolonged QT. ECG Comment Sinus rhythm, rate 93, no acute ST elevation or depression, occasional premature atrial contractions, prolonged QTC at 555, ME 132, QRS 78, EP interpretation. N onischemic tracing. Departure Impression Primary Impression: Shortness of breath Additional Impressions: Other chest pain Pre-syncope Prolonged QT interval Acute renal insufficiency Disposition: 30 STILL A PATIENT Condition: Stable Departure-Patient Inst. Referrals: [facility] (PCP) Primary Care Physician MICHELLE PICKETT APRN (Family) Primary Care Physician SILVIA TOWNSEND MD Sep 09, 2020 09:26
--- NOTE | 2020-09-09 09:44 | Diagnostic Imaging Report ---
Indication: Dyspnea Comparison is made to examination of 06/15/2019. FINDINGS: Heart size and pulmonary vascularity are within normal limits, and the lungs are clear, bilaterally. IMPRESSION: Unremarkable chest. Dictated by: Dictated on workstation # [id number]
[2020-09-09 10:36] LABS: HEMATOCRIT 37 % (35-52); HEMOGLOBIN 12.5 G/DL (11.5-16.0); MEAN CORPUSCULAR HEMOGLOBIN 29 PG (25-34); MEAN CORPUSCULAR HGB CONC 34 G/DL (32-36); MEAN CORPUSCULAR VOLUME 87 FL (80-99); MEAN PLATELET VOLUME 9.8 FL (7.4-10.4); PLATELET COUNT 334 10^3/uL (130-400); WHITE BLOOD COUNT 12.6 10^3/uL (4.3-11.0)
[2020-09-09 10:37] LABS: BASOPHILS # (AUTO) 0.1 10^3/uL (0.0-0.1); BASOPHILS % (AUTO) 1 % (0-10); EOSINOPHILS # (AUTO) 0.2 10^3/uL (0.0-0.3); EOSINOPHILS % (AUTO) 2 % (0-10); LYMPHOCYTES # (AUTO) 1.9 X 10^3 (1.0-4.0); LYMPHOCYTES % (AUTO) 15 % (12-44); MONOCYTES # (AUTO) 0.7 X 10^3 (0.0-1.0); MONOCYTES % (AUTO) 5 % (0-12); NEUTROPHILS # (AUTO) 9.7 X 10^3 (1.8-7.8); NEUTROPHILS % (AUTO) 77 % (42-75)
[2020-09-09 10:37] LABS: ABG BASE EXCESS 4.2 MMOL/L (-2.5-2.5); ABG OXYGEN SATURATION 96 % (94-100); ABG PCO2 40 MMHG (35-45); ABG PH 7.46 (7.37-7.43); ABG PO2 76 MMHG (79-93); ABG TCO2 29.6 MMOL/L (21.0-31.0)
[2020-09-09 10:38] LABS: ALLENS TEST YES-POS; INSPIRED O2 ROOM AIR; VENTILATOR NO
[2020-09-09 10:39] LABS: PATIENT TEMP 36.1
[2020-09-09 11:01] LABS: BUN/CREATININE RATIO 18; CARBON DIOXIDE 25 MMOL/L (21-32); CHLORIDE 95 MMOL/L (98-107); CREATININE SERUM 2.23 MG/DL (0.60-1.30); GFR ESTIMATED 22; POTASSIUM 3.4 MMOL/L (3.6-5.0); SODIUM 137 MMOL/L (135-145)
[2020-09-09 11:02] LABS: ALANINE AMINOTRANSFERASE 14 U/L (0-55); ALBUMIN 4.5 GM/DL (3.2-4.5); ALKALINE PHOSPHATASE 90 U/L (40-136); BILIRUBIN,TOTAL 0.3 MG/DL (0.1-1.0); GLUCOSE 145 MG/DL (70-105); TOTAL PROTEIN 7.5 GM/DL (6.4-8.2)
[2020-09-09 12:42] LABS: BACTERIA,URINE MODERATE /HPF; BILIRUBIN,URINE NEGATIVE (NEGATIVE); CLARITY,URINE CLOUDY; COLOR,URINE YELLOW; GLUCOSE, URINE (UA) NEGATIVE (NEGATIVE); KETONES,URINE NEGATIVE (NEGATIVE); LEUKOCYTE ESTERASE ,URINE 3+ (NEGATIVE); NITRITE,URINE NEGATIVE (NEGATIVE); PH,URINE 5.5 (5-9); PROTEIN,URINE NEGATIVE (NEGATIVE); RBC,URINE 25-50 /HPF; WBC,URINE >100 /HPF
--- NOTE | 2020-09-09 13:05 | NUR ---
Patient departing ER per [facility] to [place] [address] for Room 403 when call rec'd to change patient to ICU [address] EMS was stopped from pulling out and call made to ICU to confirm bed availability but RN for report not available. Call to patient's mother to change room number/location with explanation of decision change by receiving Dr. Pt has given ER the keys for her vehicle to be kept at registration till mother, Adrian Neridesmond, picks up.
[2020-09-09] MEDS ORDERED: PATIENT MAY USE OWN MEDS, ALL PO SCH (13:30)
[2020-09-09] MEDS ORDERED: LORazepam INJ 2 MG/ML (ATIVAN) VIAL IVP PRN (13:30)
[2020-09-09] MEDS ORDERED: cefTRIAXone FOR IV USE 1,000 MG in WATER (STERILE) FOR INJECTION 10 ML IV SCH (13:30)
[2020-09-09] MEDS ORDERED: NS IV 1000 ML 1,000 ML ONE (13:32)
--- NOTE | 2020-09-09 13:35 | NUR ---
Report to Hanna ALFARO in ICU, EMS is nearing arrival.
[2020-09-09] MEDS ORDERED: cefTRIAXone 2 GM/20 ML for IV (ROCEPHIN) ONE (13:44)
[2020-09-09] MEDS ORDERED: WATER (STERILE) FOR INJECTION 20 ML ONE (13:45)
[2020-09-09 13:56] VITALS: BP 176/109
[2020-09-09] MEDS: NS IV 1000 ML 1,000 ML IV SCH ×2 (14:06→21:34)
[2020-09-09] MEDS ORDERED: ENOXAPARIN 100 MG/1 ML (LOVENOX) SYR SC SCH (15:30)
[2020-09-09] MEDS ORDERED: LEVO-129 PO (15:32)
--- NOTE | 2020-09-09 15:33 | NUR ---
SPOKE WITH THE PT (I CALLED HER ROOM PHONE) AND WENT THRU THE EXT MED HISTORY TO COMPLETE THE MED REC PT WAS ABLE TO NAME ALL HER MEDICATIONS WELL WHEN/HOW SHE TAKES EACH. ACCORDING TO THE PT SHE TAKING LISINOPRIL/HCTZ 1 TAB DAILY AND LISINOPRIL 20MG 1 TAB HS OTC MEDS: NONE
[2020-09-09] MEDS ORDERED: ENOXAPARIN 80 MG/0.8 ML (LOVENOX) SYR SC SCH (16:00)
--- NOTE | 2020-09-09 17:01 | Diagnostic Imaging Report ---
Indication: Dyspnea COMPARISON STUDY: Chest radiograph from today. FINDINGS: Patient is given 5.39 mCi technetium 99m labeled MAA intravenously. Imaging of the chest was obtained in multiple projections. Exam demonstrates normal uptake of the radiopharmaceutical. No segmental or subsegmental defects are present. IMPRESSION: Normal lung perfusion study. Dictated by: Dictated on workstation # [id number]
[2020-09-09] MEDS ORDERED: RT-ALBUTEROL INHALER HFA (VENTOLIN HFA) 18 GM IH PRN (17:15)
[2020-09-09] MEDS: RT-ALBUTEROL INHALER HFA (VENTOLIN HFA) 18 GM IH SCH (19:47)
[2020-09-09] MEDS: inSUlin ASPART (NovoLOG) 1 UNIT/0.01 ML (CHARGE PER UNIT) IV SCH (20:56)
[2020-09-10] MEDS: ACETAMINOPHEN 500 MG TAB (TYLENOL) PO SCH ×4 (02:42→10:55)
[2020-09-10 03:45] LABS: BASOPHILS # (AUTO) 0.1 10^3/uL (0.0-0.1); BASOPHILS % (AUTO) 1 % (0-10); EOSINOPHILS # (AUTO) 0.4 10^3/uL (0.0-0.3); EOSINOPHILS % (AUTO) 5 % (0-10); HEMATOCRIT 33 % (35-52); HEMOGLOBIN 10.6 g/dL (11.5-16.0); LYMPHOCYTES # (AUTO) 2.1 10^3/uL (1.0-4.0); LYMPHOCYTES % (AUTO) 27 % (12-44); MEAN CORPUSCULAR HEMOGLOBIN 29 pg (25-34); MEAN CORPUSCULAR HGB CONC 32 g/dL (32-36); MEAN CORPUSCULAR VOLUME 91 fL (80-99); MONOCYTES # (AUTO) 0.4 10^3/uL (0.0-1.0); MONOCYTES % (AUTO) 6 % (0-12); NEUTROPHILS # (AUTO) 4.9 10^3/uL (1.8-7.8); NEUTROPHILS % (AUTO) 62 % (42-75); PLATELET COUNT 296 10^3/uL (130-400)
[2020-09-10 03:56] LABS: ALBUMIN 3.7 GM/DL (3.2-4.5); POTASSIUM 3.5 MMOL/L (3.6-5.0)
[2020-09-10 03:57] LABS: CALCIUM 8.2 MG/DL (8.5-10.1)
[2020-09-10 03:58] LABS: TOTAL PROTEIN 6.3 GM/DL (6.4-8.2)
[2020-09-10 04:00] LABS: BILIRUBIN,TOTAL 0.5 MG/DL (0.1-1.0)
[2020-09-10 04:02] LABS: CREATININE SERUM 1.47 MG/DL (0.60-1.30)
[2020-09-10 04:05] LABS: MAGNESIUM 1.3 MG/DL (1.6-2.4)
[2020-09-10] MEDS: inSUlin ASPART (NovoLOG) 1 UNIT/0.01 ML (CHARGE PER UNIT) IV SCH ×2 (04:42→10:55)
[2020-09-10] MEDS: NS IV 1000 ML 1,000 ML IV SCH (05:12)
[2020-09-10] MEDS ORDERED: POTASSIUM CL 10MEQ/50ML IVPB 50 ML IV SCH (06:00)
[2020-09-10] MEDS ORDERED: KCL 20 MEQ TAB (K-DUR) PO SCH (06:00)
[2020-09-10] MEDS ORDERED: MAGNESIUM 1 GM/100 ML IVPB 100 ML IV SCH (06:00)
--- NOTE | 2020-09-10 06:43 | History & Physical-Hospitalist ---
History of Present Illness HPI/Chief Complaint CC: Syncope HPI: This is a 64yoWF clinic patient of [facility] who presents to the [facility] ER after a syncopal episode at work at [employer]. She is swabbed twice a week for COVID, and Sat at work per protocol and her swab was negative Saturday and today but PCR sent off due to elevated d-dimer. VQ scan will be performed. Cardiology consulted. Patient does have UTI. Source: patient Date Seen 09/09/20 Time Seen by a Provider: 15:00 Attending Physician Gill Stewart DO [facility] Center/Se,[facility] Referring Physician Date of Admission Sep 09, 2020 at 13:54 Home Medications & Allergies Home Medications Reviewed patient Home Medication Reconciliation performed by pharmacy medication reconciliations door technician and/or nursing. Patients Allergies have been reviewed. Allergies Allergies Coded Allergies No Known Drug Allergies (Unverified03/01/20) Past Kwrkzlc-Ovtnny-Anyfgt Hx Past Med/Social Hx: Reviewed Nursing Past Med/Soc Hx, Reviewed and Corrections made Patient Social History Marrital Status: single Employed/Student: employed Alcohol Use: Denies Use Recreational Drug Use: No Smoking Status: Never a Smoker Former Smoker, Quit: Jun 28, 2013 Type Used: Cigarettes 2nd Hand Smoke Exposure: No Recent Foreign Travel: No Contact w/other who traveled: No Recent Hopitalizations: No Recent Infectious Disease Expo: No Immunizations Up To Date Date of Influenza Vaccine: Jul 20, 2019 Seasonal Allergies Seasonal Allergies: No Past Medical History Surgeries: Hysterectomy Cardiac: High Cholesterol, Hypertension : No Sexually Transmitted Disease: No HIV/AIDS: No Hysterectomy Gastrointestinal: Gastroesophageal Reflux Musculoskeletal: Arthritis, Chronic Back Pain Endocrine: Hypothyroidsim, Diabetes, Non-Insulin dep Loss of Vision: Denies Hearing Impairment: Denies Cancer: Breast Did You Recieve Any Treatments: Yes What Type of Treatment Did You: Chemotherapy, Radiation, Surgical Intervention Psychosocial: Anxiety, Depression History of Blood Disorders: No Adverse Reaction to Blood Hussein: No (N/A) Family History Reviewed Nursing Family Hx Review of Systems Constitutional: see HPI, dizziness, weakness Physical Exam Physical Exam Vital Signs Vital Signs - First Documented 09/09/20 09/09/20 09/09/20 09:00 15:07 16:49 Temp 36.1 Pulse 105 Resp 26 B/P (MAP) 116/85 (95) Pulse Ox 100 O2 Delivery Room Air O2 Flow Rate 3.00 FiO2 21 Capillary Refill : Less Than 3 Seconds Height, Weight, BMI Height: 5'1.00" Weight: 156lbs. 0.0oz. 70.352672ul; 31.00 BMI Method:Stated General Appearance: No Apparent Distress, Anxious, Chronically ill Eyes: Right Eye Normal Inspection, Right Eye PERRL HEENT: PERRL/EOMI, Normal ENT Inspection, Pharynx Normal, Moist Mucous Me mbranes Neck: Full Range of Motion, Normal Inspection, Non Tender Respiratory: Chest Non Tender, Lungs Clear, Normal Breath Sounds, No Accessory Muscle Use, No Respiratory Distress Cardiovascular: Regular Rate, Rhythm, No Edema, No Gallop, No JVD, No Murmur, Normal Peripheral Pulses Gastrointestinal: Normal Bowel Sounds, No Organomegaly, No Pulsatile Mass, Non Tender, Soft Back: Normal Inspection, No CVA Tenderness, No Vertebral Tenderness Extremity: Normal Capillary Refill, Normal Inspection, Normal Range of Motion, Non Tender, No Calf Tenderness, No Pedal Edema Neurologic/Psychiatric: Alert, Oriented x3, No Motor/Sensory Deficits, Normal Mood/Affect Skin: Normal Color, Warm/Dry Lymphatic: No Adenopathy Results Results/Procedures Labs Laboratory Tests 09/09/20 10:20 09/10/20 02:45 Patient resulted labs reviewed. Assessment/Plan Admission Diagnosis Assessment: Syncope Elevated d-dimer requiring VQ scan due to elevated creatinine COVID swab pending PCR ARF UTI Sepsis Plan: IV abx IVF Monitor closely Admission Status: Observation Reason for Inpatient Admission: syncope Diagnosis/Problems Diagnosis/Problems (1) Syncope (2) Prolonged QT interval Status: Acute (3) Acute renal insufficiency Status: Acute (4) Shortness of breath Status: Acute Clinical Quality Measures DVT/VTE Risk/Contraindication: Risk Factor Score Per Nursin RFS Level Per Nursing on Admit: 2=Moderate GILL STEWART DO Sep 10, 2020 06:43
[2020-09-10] MEDS: RT-ALBUTEROL INHALER HFA (VENTOLIN HFA) 18 GM IH SCH (07:37)
--- NOTE | 2020-09-10 08:46 | Diagnostic Imaging Report ---
EXAMINATION: Chest 1 view HISTORY: Shortness of breath COMPARISON: 09/09/2020 FINDINGS: The lungs are clear without edema or pneumonia. No pleural effusion or pneumothorax. Heart size is normal. IMPRESSION: 1. Clear lungs. Dictated by: Dictated on workstation # [id number]
[2020-09-10] MEDS ORDERED: ENOXAPARIN 40 MG/0.4 ML (LOVENOX) SYR SC SCH (09:00)
[2020-09-10] MEDS ORDERED: ASPIRIN 81 MG CHEW (CHILDREN'S ASA) PO SCH (09:00)
--- NOTE | 2020-09-10 12:01 | Consultation-Cardiology ---
HPI-Cardiology Cardiology Consultation Date of Consultation 09/10/20 Date of Admission Time Seen by Provider: 11:54 Indication: near syncope HPI 64-year-old lady with history of breast cancer, hypertension, hyperlipidemia and diabetes mellitus. Patient reported that she was hypotensive and she was lightheaded at the said down. No full syncope was reported, reported that she w as seeing stars. Since arrival to the hospital she has been feeling better. No further episodes of dizziness or lightheadedness. No new complaint. Had mild chest discomfort. Home Medications & Allergies Allergies: Coded Allergies: No Known Drug Allergies (Unverified , 03/01/20) Home Medication List Reviewed: Yes WND-Wmgkgv-Lafahn Hx Patient Social History Marital Status: single Employed/Student: employed Alcohol Use: Denies Use Recreational Drug Use: No Smoking Status: Never a Smoker Type Used: Cigarettes 2nd Hand Smoke Exposure: No Recent Foreign Travel: No Recent Infectious Disease Expo: No Recent Hopitalizations: No Immunizations Up To Date Date of Influenza Vaccine: Jul 20, 2019 Past Medical History Discussed below Family Medical History Family Medical Hx Noncontributory Review of Systems-General Review of Systems Constitutional: see HPI, dizziness, malaise, weakness EENTM: see HPI, no symptoms reported Respiratory: see HPI; No cough, No dyspnea on exertion, No hemoptysis, No orthopnea, No phlegm, No short of breath, No stridor, No wheezing, No other Cardiovascular: see HPI, chest pain; No edema, No Hx of Intervention, No palpitations, No syncope, No vascular heart diseas, No other Gastrointestinal: no symptoms reported, see HPI Genitourinary: no symptoms reported, see HPI Musculoskeletal: no symptoms reported, see HPI Skin: no symptoms reported, see HPI Psychiatric/Neurological: No Symptoms Reported, See HPI All Other Systems Reviewed Negative Unless Noted: Yes (Negative excepted noted.) Reviewed Test Results Reviewed Test Results Lab Laboratory Tests Test 09/09/20 12:30 09/09/20 15:00 09/09/20 15:54 09/09/20 17:47 Range/Units Urine Color YELLOW Urine Clarity CLOUDY Urine pH 5.5 5-9 Urine Specific [place] 1.020 1.016-1.022 Urine Protein NEGATIVE NEGATIVE Urine Glucose (UA) NEGATIVE NEGATIVE Urine Ketones NEGATIVE NEGATIVE Urine Nitrite NEGATIVE NEGATIVE Urine Bilirubin NEGATIVE NEGATIVE Urine Urobilinogen 0.2 < = 1.0 MG/DL Urine Leukocyte Esterase 3+ H NEGATIVE Urine RBC (Auto) 1+ H NEGATIVE Urine RBC 25-50 H /HPF Urine WBC >100 H /HPF Urine Squamous Epithelial Cells 10-25 H /HPF Urine Crystals NONE /LPF Urine Bacteria MODERATE H /HPF Urine Casts NONE /LPF Urine Mucus NONE /LPF Urine Culture Indicated YES Troponin I 0.056 H <0.028 NG/ML Glucometer 80 70-110 MG/DL Lactic Acid Level 0.94 0.50-2.00 MMOL/L Test 09/09/20 20:27 09/09/20 20:41 09/10/20 02:45 09/10/20 10:44 Range/Units Troponin I < 0.028 0.043 H <0.028 NG/ML Glucometer 112 H 161 H 70-110 MG/DL White Blood Count 8.0 4.3-11.0 10^3/uL Red Blood Count 3.60 L 3.80-5.11 10^6/uL Hemoglobin 10.6 L 11.5-16.0 g/dL Hematocrit 33 L 35-52 % Mean Corpuscular Volume 91 80-99 fL Mean Corpuscular Hemoglobin 29 25-34 pg Mean Corpuscular Hemoglobin Concent 32 32-36 g/dL Red Cell Distribution Width 13.5 10.0-14.5 % Platelet Count 296 130-400 10^3/uL Mean Platelet Volume 10.0 9.0-12.2 fL Immature Granulocyte % (Auto) 0 % Neutrophils (%) (Auto) 62 42-75 % Lymphocytes (%) (Auto) 27 12-44 % Monocytes (%) (Auto) 6 0-12 % Eosinophils (%) (Auto) 5 0-10 % Basophils (%) (Auto) 1 0-10 % Neutrophils # (Auto) 4.9 1.8-7.8 10^3/uL Lymphocytes # (Auto) 2.1 1.0-4.0 10^3/uL Monocytes # (Auto) 0.4 0.0-1.0 10^3/uL Eosinophils # (Auto) 0.4 H 0.0-0.3 10^3/uL Basophils # (Auto) 0.1 0.0-0.1 10^3/uL Immature Granulocyte # (Auto) 0.0 0.0-0.1 10^3/uL Sodium Level 140 135-145 MMOL/L Potassium Level 3.5 L 3.6-5.0 MMOL/L Chloride Level 104 98-107 MMOL/L Carbon Dioxide Level 23 21-32 MMOL/L Anion Gap 13 5-14 MMOL/L Blood Urea Nitrogen 33 H 7-18 MG/DL Creatinine 1.47 H 0.60-1.30 MG/DL Estimat Glomerular Filtration Rate 36 BUN/Creatinine Ratio 22 Glucose Level 102 70-105 MG/DL Calcium Level 8.2 L 8.5-10.1 MG/DL Corrected Calcium 8.4 L 8.5-10.1 MG/DL Phosphorus Level 4.0 2.3-4.7 MG/DL Magnesium Level 1.3 L 1.6-2.4 MG/DL Total Bilirubin 0.5 0.1-1.0 MG/DL Aspartate Amino Transf (AST/SGOT) 15 5-34 U/L Alanine Aminotransferase (ALT/SGPT) 11 0-55 U/L Alkaline Phosphatase 56 40-136 U/L Total Protein 6.3 L 6.4-8.2 GM/DL Albumin 3.7 3.2-4.5 GM/DL Physical Exam Physical Exam Vital Signs Vital Signs - First Documented 09/09/20 09/09/20 09/09/20 09:00 15:07 16:49 Temp 36.1 Pulse 105 Resp 26 B/P (MAP) 116/85 (95) Pulse Ox 100 O2 Delivery Room Air O2 Flow Rate 3.00 FiO2 21 Capillary Refill : Less Than 3 Seconds Height, Weight, BMI Height: 5'1.00" Weight: 156lbs. 0.0oz. [id number]; 31.00 BMI Method:Stated General Appearance: No Apparent Distress, Anxious, Chronically ill Eyes: Right Eye Normal Inspection, Right Eye PERRL HEENT: PERRL/EOMI, Normal ENT Inspection, Pharynx Normal, Moist Mucous Membranes Neck: Full Range of Motion, Normal Inspection, Non Tender Respiratory: Chest Non Tender, Lungs Clear, Normal Breath Sounds, No Accessory Muscle Use, No Respiratory Distress Cardiovascular: Regular Rate, Rhythm, No Edema, No Gallop, No JVD, No Murmur, Normal Peripheral Pulses Gastrointestinal: Normal Bowel Sounds, No Organomegaly, No Pulsatile Mass, Non Tender, Soft Back: Normal Inspection, No CVA Tenderness, No Vertebral Tenderness Extremity: Normal Capillary Refill, Normal Inspection, Normal Range of Motion, Non Tender, No Calf Tenderness, No Pedal Edema Neurologic/Psychiatric: Alert, Oriented x3, No Motor/Sensory Deficits, Normal Mood/Affect Skin: Normal Color, Warm/Dry Lymphatic: No Adenopathy A/P-Cardiology Admission Diagnosis Near syncope Chest pain Acute renal failure Diabetes mellitus Assessment/Plan Near syncope with hypotension. Probably secondary to orthostatic changes with autonomic dysfunction in addition to medication. Patient has been taking lisinopril 20 mg and lisinopril HCT 20/12.5 mg daily, improved blood pressure at this time, I recommend restarting lisinopril 20 mg only and monitor. Acute renal failure, probably secondary to hypovolemia and dehydration. Continue to monitor renal function as an outpatient Chest pain nonspecific etiology, had slight increase in troponin probably due to hypotension, had a stress test done in June 2019 showing no significant ischemia or infarction. We can plan for a stress test as an outpatient History of hypertension, was hypotensive initially, currently normotensive. Monitor blood pressure as an outpatient Hyperlipidemia, restart medication monitor Diabetes mellitus, managed and followed by primary care physician, I recommend discontinuation of metformin due to renal failure and use a different medication for her diabetes History of breast cancer, left mastectomy, radiation to the chest, monitored and followed by primary care physician Obesity, BMI 30. Okay for discharge from cardiology standpoint and follow up as an outpatient Clinical Quality Measures DVT/VTE Risk/Contraindication: Risk Factor Score Per Nursin RFS Level Per Nursing on Admit: 2=Moderate TYLER FLORIAN MD Sep 10, 2020 12:01
[2020-09-10] MEDS ORDERED: ASPI-999 PO (12:12)
[2020-09-10] MEDS ORDERED: CEFD300C3 PO (12:12)
--- NOTE | 2020-09-10 12:12 | Discharge Summary ---
Discharge Summary Hospital Course Was the Problem List Reviewed?: Yes Problems/Dx: (1) Syncope (2) Prolonged QT interval Status: Acute (3) Acute renal insufficiency Status: Acute (4) Shortness of breath Status: Acute Hospital Course Date of Admission: Sep 09, 2020 at 13:54 Admission Diagnosis : Family Physician/Provider: Christiane Bowling Aprn Date of Discharge: 09/10/20 Discharge Diagnosis: syncope, UTI, elevated ddimer with normal perfusion scan, JAHAIRA, DM, JAHAIRA Hospital Course: Short course after admitted form [employer] after syncopal episode at work. COVID negative. IVF initiated with good resolution of JAHAIRA. Lisinopril HCTZ will be held along with Mobic and Metformin at [facility] and pt was placed on Rocephin empirically and sent ming on Cefdinir. Labs and Pending Lab Test: Laboratory Tests 09/09/20 12:30: Urine Color YELLOW, Urine Clarity CLOUDY, Urine pH 5.5, Urine Specific [place] 1.020, Urine Protein NEGATIVE, Urine Glucose (UA) NEGATIVE, Urine Ketones NEGATIVE, Urine Nitrite NEGATIVE, Urine Bilirubin NEGATIVE, Urine Urobilinogen 0.2, Urine Leukocyte Esterase 3+H, Urine RBC (Auto) 1+H, Urine RBC 25-50H, Urine WBC >100H, Urine Squamous Epithelial Cells 10-25H, Urine Crystals NONE, Urine Bacteria MODERATEH, Urine Casts NONE, Urine Mucus NONE, Urine Culture Indicated YES 09/09/20 15:00: Troponin I 0.056H 09/09/20 15:54: Glucometer 80 09/09/20 17:47: Lactic Acid Level 0.94 09/09/20 20:27: Troponin I < 0.028 09/09/20 20:41: Glucometer 112H 09/10/20 02:45: Troponin I 0.043H, White Blood Count 8.0, Red Blood Count 3.60L, Hemoglobin 10.6L, Hematocrit 33L, Mean Corpuscular Volume 91, Mean Corpuscular Hemoglobin 29, Mean Corpuscular Hemoglobin Concent 32, Red Cell Distribution Width 13.5, Platelet Count 296, Mean Platelet Volume 10.0, Immature Granulocyte % (Auto) 0, Neutrophils (%) (Auto) 62, Lymphocytes (%) (Auto) 27, Monocytes (%) (Auto) 6, Eosinophils (%) (Auto) 5, Basophils (%) (Auto) 1, Neutrophils # (Auto) 4.9, Lymphocytes # (Auto) 2.1, Monocytes # (Auto) 0.4, Eosinophils # (Auto) 0.4H, Basophils # (Auto) 0.1, Immature Granulocyte # (Auto) 0.0, Sodium Level 140, Potassium Level 3.5L, Chloride Level 104, Carbon Dioxide Level 23, Anion Gap 13, Blood Urea Nitrogen 33H, Creatinine 1.47H, Estimat Glomerular Filtration Rate 36, BUN/Creatinine Ratio 22, Glucose Level 102, Calcium Level 8.2L, Corrected Calcium 8.4L, Phosphorus Level 4.0, Magnesium Level 1.3L, Total Bilirubin 0.5, Aspartate Amino Transf (AST/SGOT) 15, Alanine Aminotransferase (ALT/SGPT) 11, Alkaline Phosphatase 56, Total Protein 6.3L, Albumin 3.7 09/10/20 10:44: Glucometer 161H Microbiology 09/09/20 MRSA Screen - Final, Complete MRSA not isolated Home Meds Active Reported Euthyrox (Levothyroxine Sodium) 50 Mcg Tablet 50 Mcg PO DAILY Meloxicam 15 Mg Tablet 15 Mg PO DAILY Lisinopril 20 Mg Tablet 20 Mg PO HS Metformin HCl ER (Metformin HCl) 500 Mg Tab.er.24h 1,000 Mg PO DAILY TAKES 2 (500MG) TABS Rosuvastatin Calcium 10 Mg Tablet 10 Mg PO HS Citalopram HBr (Citalopram Hydrobromide) 20 Mg Tablet 20 Mg PO HS Lisinopril-Hctz 20-12.5 mg Tab (Lisinopril/Hydrochlorothiazide) 1 Each Tablet 1 Tab PO DAILY Assessment/Pt Instructions [facility] 1 week Discharge Planning: <30 minutes discharge planning Discharge Physical Examination Vital Signs Vital Signs Date Time Temp Pulse Resp B/P (MAP) Pulse Ox O2 Delivery O2 Flow Rate FiO2 09/10/20 10:00 71 15 114/88 93 Room Air 09/10/20 08:13 35.5 09/09/20 18:00 3.00 09/09/20 16:49 21 General Appearance: No Apparent Distress, WD/WN, Chronically ill Allergies: Coded Allergies: No Known Drug Allergies (Unverified , 03/01/20) Discharge Summary Date of Admission Sep 09, 2020 at 13:54 Date of Discharge Discharge Date: Sep 10, 2020 Admission Diagnosis Assessment: Syncope Elevated d-dimer requiring VQ scan due to elevated creatinine COVID swab pending PCR ARF UTI Sepsis Plan: IV abx IVF Monitor closely Discharge Diagnosis (1) Syncope (2) Prolonged QT interval Status: Acute (3) Acute renal insufficiency Status: Acute (4) Shortness of breath Status: Acute Clinical Quality Measures DVT/VTE Risk/Contraindication: Risk Factor Score Per Nursin RFS Level Per Nursing on Admit: 2=Moderate CHENCHO FRANK DO Sep 10, 2020 12:12
[2020-09-10] MEDS ORDERED: cefTRIAXone FOR IV USE 1,000 MG in WATER (STERILE) FOR INJECTION 10 ML IV SCH (14:00)
== END 2020-09-10 14:40 | disposition home or self-care (01) ==
LOC: EDUNIT# 08:53 → ER FS 08:54 → ICU 13:54
PROVIDERS: ADMIT Internal Medicine; ATTEND Internal Medicine
DX: R55 Syncope and collapse (principal); N17.9 Acute kidney failure, unspecified; R06.02 Shortness of breath; N39.0 Urinary tract infection, site not specified; A41.9 Sepsis, unspecified organism; J44.9 Chronic obstructive pulmonary disease, unspecified; I10 Essential (primary) hypertension; E78.00 Pure hypercholesterolemia, unspecified; M19.90 Unspecified osteoarthritis, unspecified site; E03.9 Hypothyroidism, unspecified; E11.9 Type 2 diabetes mellitus without complications; F41.9 Anxiety disorder, unspecified; F32.9 Major depressive disorder, single episode, unspecified; R07.89 Other chest pain; Z20.828 Contact with and (suspected) exposure to other viral communicable diseases; Z79.84 Long term (current) use of oral hypoglycemic drugs; Z79.899 Other long term (current) drug therapy; Z87.891 Personal history of nicotine dependence; Z85.3 Personal history of malignant neoplasm of breast; Z92.21 Personal history of antineoplastic chemotherapy; Z90.710 Acquired absence of both cervix and uterus
CPT/HCPCS: 36415; 71045 ×2; 78580; 80053 ×2; 81000; 82805; 82962 ×2; 83605; 83735; 83880; 84100; 84484 ×3; 85025 ×2; 85379; 87081; 87088; 93005; 93306; 94640 ×2; 99291; A9540; U0002; 87635; G0378

== ENCOUNTER → 2021-12-06 | Outpatient (CLI) | payer MEDICARE ==
[~2021-12-06] MED LIST changes: +ASPI-999 PO; +CATHETER FLUSH 10 ML SYR IV PRN; +CEFD300C3 PO; +HOLD METFORMIN - RECEIVED CONTRAST 20 ML VIAL IV SCH; +IOHEXOL 350 MG/ML 150 ML (OMNIPAQUE 350) VIAL IV ONE; +LEVO-129 PO; -LISI-552 PO; +LISI20TA26 PO; +NS 100 ML (IVPB) BAG IV ONE
[2021-12-06 13:36] LABS: BILIRUBIN,TOTAL 0.3 MG/DL (0.1-1.0); CALCIUM 9.5 MG/DL (8.5-10.1); CREATININE SERUM 1.2 MG/DL (0.60-1.30); POTASSIUM 3.9 MMOL/L (3.6-5.0)
[2021-12-06 13:37] LABS: ALBUMIN 4.5 GM/DL (3.2-4.5); TOTAL PROTEIN 6.9 GM/DL (6.4-8.2)
--- NOTE | 2021-12-06 16:23 | Diagnostic Imaging Report ---
PROCEDURE: CT chest with contrast only. TECHNIQUE: Multiple contiguous axial images were obtained through the chest after administration of intravenous contrast. Auto Exposure Controls were utilized during the CT exam to meet ALARA standards for radiation dose reduction. INDICATION: Pulmonary nodule. COMPARISON: Exam is compared with study 06/15/2019. FINDINGS: A juxtapleural nodule in the left lower lobe at the lateral sulcus measures 12 mm in long axis, unchanged when measured utilizing the same technique on prior. Given identical morphology, density, and size from the comparison of 06/15/2019, this is presumed benign. No new lung mass. No spiculated lesion. 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 Some chest wall vascular collaterals are present with the SVC and subclavian veins patent. The aorta is patent, nonaneurysmal, and nonacute. No evidence of pneumonia or edema. No effusion or pneumothorax. No acute chest wall pathology. The visualized upper abdomen is unremarkable. IMPRESSION: Long-term stability of juxtapleural left basilar pulmonary nodule consistent with benign process. No further workup needed. No acute appearing abnormality identified. Dictated by: Dictated on workstation # [id number]
== END ==
LOC: LAB FS 12:51
PROVIDERS: ATTEND Nurse Practitioner Family
DX: R91.1 Solitary pulmonary nodule (principal); I10 Essential (primary) hypertension
CPT/HCPCS: 36415; 71260; 80053; Q9967

== ENCOUNTER 2022-01-04 09:49 | Emergency (ER) | payer MEDICARE, MEDICAID ==
[~2022-01-04 09:49] MED LIST changes: -CATHETER FLUSH 10 ML SYR IV PRN; -HOLD METFORMIN - RECEIVED CONTRAST 20 ML VIAL IV SCH; -IOHEXOL 350 MG/ML 150 ML (OMNIPAQUE 350) VIAL IV ONE; -NS 100 ML (IVPB) BAG IV ONE
[2022-01-04] MEDS: ANTACID SUSP 30 ML UDC (MYLANTA) PO ONE (10:07)
[2022-01-04] MEDS: LIDOCAINE 2% VISCOUS 15 ML UDC PO ONE (10:07)
--- NOTE | 2022-01-04 10:07 | ED EENT ---
History of Present Illness General Chief Complaint: Oral/Throat Problems Stated Complaint: THROAT INJ Source: patient Exam Limitations: no limitations History of Present Illness Date Seen by Provider: Jan 04, 2022 Time Seen by Provider: 09:51 Initial Comments 66-year-old female with past medical history of diabetes coming in due to throat pain. She said she swallowed hot soup 2 days ago. Around 4 hours after that she began having severe throat burning pain with cough. She says is been difficult to eat or drink since then, and the cough has persisted. Denies any fever, vomiting, abdominal pain, chest pain, weakness, numbness, rash, diarrhea, or any other concerns. She says she is taken no medicines for this. Allergies and Home Medications Allergies Coded Allergies: No Known Drug Allergies (Unverified , 03/01/20) Patient Home Medication List Home Medication List Reviewed: Yes Aspirin (Aspirin) 81 Mg Tab.chew, 81 MG PO DAILY@0900 Prescribed by: CHENCHO FRANK on 09/10/20 1212 Cefdinir (Cefdinir) 300 Mg Capsule, 300 MG PO BID Prescribed by: CHENCHO FRANK on 09/10/20 1212 Citalopram Hydrobromide (Citalopram HBr) 20 Mg Tablet, 20 MG PO HS, (Reported) Entered as Reported by: MICHELLE DE ANDA on 06/16/19 0936 Levothyroxine Sodium (Euthyrox) 50 Mcg Tablet, 50 MCG PO DAILY, (Reported) Entered as Reported by: EMILEE WEI on 09/09/20 1532 Lisinopril (Lisinopril) 20 Mg Tablet, 20 MG PO HS, (Reported) Entered as Reported by: MICHELLE DE ANDA on 06/16/19 0939 Rosuvastatin Calcium (Rosuvastatin Calcium) 10 Mg Tablet, 10 MG PO HS, (Reported) Entered as Reported by: MICHELLE DE ANDA on 06/16/19 0936 Review of Systems Review of Systems Constitutional: No chills, No fever Eyes: Denies Blurred Vision Ears: Denies Dizziness Nose: no symptoms reported Mouth: no symptoms reported Throat: hoarse, painful swallowing Respiratory: no symptoms reported Cardiovascular: no symptoms reported Gastrointestinal: no symptoms reported Musculoskeletal: no symptoms reported Skin: no symptoms reported Neurological: No Symptoms Reported Hematologic/Lymphatic: No Symptoms Reported Immunological/Allergic: no symptoms reported All Other Systems Reviewed Negative Unless Noted: Yes Past Ealhoev-Rnglst-Rhfwpi Hx Patient Social History Tobacco Use?: No Use of E-Cig and/or Vaping dev: No Substance use?: No Alcohol Use?: No Pt feels they are or have been: No Seasonal Allergies Seasonal Allergies: No Past Medical History Surgery/Hospitalization HX: HYSTERECTOMY AND BREAST CANCER Surgeries: Yes (left mastectomy, R hand skin cancer) Hysterectomy Respiratory: Yes COPD Cardiac: Yes High Cholesterol, Hypertension 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 Sexually Transmitted Disease: No HIV/AIDS: No Genitourinary: No Gastrointestinal: Yes Gastroesophageal Reflux Musculoskeletal: Yes (back) Arthritis, Chronic Back Pain Endocrine: Yes Hypothyroidsim, Diabetes, Non-Insulin dep HEENT: No (glasses) Loss of Vision: Denies Hearing Impairment: Denies Cancer: Yes Breast Did You Recieve Any Treatments: Yes What Type of Treatment Did You: Chemotherapy, Radiation, Surgical Intervention Psychosocial: Yes Anxiety, Depression Integumentary: No Blood Disorders: No Adverse Reaction/Blood Tranf: No (N/A) Physical Exam Vital Signs Vital Signs - First Documented 01/04/22 09:56 Temp 36.9 Pulse 116 Resp 20 B/P (MAP) 134/95 (108) Pulse Ox 97 O2 Delivery Room Air Height, Weight, BMI Height: 5'1.00" Weight: 156lbs. 0.0oz. [id number]; 30.35 BMI Method:Stated General Appearance: WD/WN, no apparent distress Eyes: bilateral eye normal inspection, bilateral eye PERRL, bilateral eye EOMI Ears: bilateral ear auricle normal Nose: normal inspection Mouth/Throat: No excessive drooling, No mandibular swelling, No pharynx swelling, No tongue swollen, No tonsillar exudate, No tonsillar swelling, No trismus, No uvula swelling; voice changes (Hoarse voice), other (Erythematous oropharynx) Neck: non-tender, full range of motion, supple, normal inspection Cardiovascular: regular rate, rhythm, no edema, no murmur Respiratory: chest non-tender, lungs clear, normal breath sounds, no respiratory distress, no accessory muscle use Gastrointestinal: normal bowel sounds, non tender, soft; No distended, No guarding, No rebound Neurologic/Psychiatric: no motor/sensory deficits, alert, normal mood/affect Skin: normal color, warm/dry Progress/Results/Core Measures Results/Orders My Orders Orders - PAPA BUCKNER MD Lidocaine 2% Viscous 15 Ml (Xylocaine Vi (01/04/22 10:15) Antacid Suspension (Mylanta Suspension (01/04/22 10:15) Dexamethasone Oral Soln (Ed) (Decadron I (01/04/22 10:01) Medications Given in ED Current Medications Medications Dose Ordered Sig/Cleo Route Start Time Stop Time Status Last Admin Dose Admin Al Hydrox/Mg Hydrox/Simethicone 30 ml ONCE ONCE PO 01/04/22 10:15 01/04/22 10:16 01/04/22 10:07 30 ML Lidocaine HCl 15 ml ONCE ONCE PO 01/04/22 10:15 01/04/22 10:16 01/04/22 10:07 15 ML Vital Signs/I&O 01/04/22 09:56 Temp 36.9 Pulse 116 Resp 20 B/P (MAP) 134/95 (108) Pulse Ox 97 O2 Delivery Room Air Progress Progress Note : Progress Note 66yoF with above history coming in due to throat pain that she attributes to swallowing hot soup 2 days ago. It seems less likely that this is truly a burn injury given that took many hours after the incident to have any real pain. It is reassuring that it has been a couple days, and I have a low suspicion for any significant edema or swelling that would cause compromise to her airway at this point. We will give her some viscous lidocaine to try to help with the pain. We will give her some steroids in case this is a typical pharyngitis being confused as a burn. She is tolerating p.o., and is in no respiratory distress. Likely this will continue to improve regardless of the etiology. I believe she is stable for discharge with outpatient follow-up. I will give her information with our surgeons if she continues to have pain for potential scope in the future. She was then discharged home in stable condition with strict return precautions. I did contact her pharmacy, [facility], discussed that they have Magic mouthwash, but they are not a compounding pharmacy anymore. They were able to get the patient some viscous lidocaine and Mylanta that she can take. I did a verbal prescription for this. Departure Impression Primary Impression: Throat pain Disposition: HOME, SELF-CARE Condition: Stable Departure-Patient Inst. Decision time for Depature: 10:20 Referrals: MICHELLE PICKETT APRN (PCP) Primary Care Physician [facility] (Family) Primary Care Physician MRAIAM NEWMAN DO Patient Instructions: Sore Throat in Adults Add. Discharge Instructions: Your sore throat could be from a potential burn or could actually just be an infection with a normal sore throat. I recommend using the Magic mouthwash as needed for throat pain. Is okay not to eat that much the next couple days, but I do want you to have water with you and take frequent very small sips so that you can stay hydrated. If you are having pain in the next week or so you can call Dr. Newman's office to schedule an appointment for potential upper GI scope to see if there are any other serious problems. Given its been 2 days since the incident, I suspect you are going to improve. Most people if they are going to have significant injury it would happen within the first few hours PAPA BUCKNER MD Jan 04, 2022 10:07
[2022-01-04 10:17] VITALS: BP 134/95
== END 2022-01-04 10:17 | disposition home or self-care (01) ==
LOC: EDUNIT# 09:49 → ER FS 09:51
DX: R07.0 Pain in throat (principal)
CPT/HCPCS: 99283